=== PATIENT | female | born 1945 | race Caucasian/White ===

== ENCOUNTER 2020-10-10 08:18 | Outpatient (REF) | payer MEDICARE, OTHER, SELFPAY ==
--- NOTE | ~2020-10-10 | US_ITS ---
EXAMINATION: US RETROPERITONEAL LIMITED (RENAL ONLY) CLINICAL INFORMATION: Hematuria. COMPARISON: Ultrasound abdomen 12/24/2016. TECHNIQUE: Routine retroperitoneal ultrasound kidneys performed. FINDINGS: RIGHT KIDNEY: 11.1 x 4.5 x 4.7 cm (SAG x AP x TRV). The kidney is normal in size, contour, and echogenicity. Renal cortical thickness is normal. There are echogenic stone lower pole measuring 0.7 x 0.6 x 0.6 cm. No additional stones, cyst or solid mass seen. There is no hydronephrosis. LEFT KIDNEY: 12.1 x 5.2 x 4.3 cm. cm (SAG x AP x TRV). The kidney is normal in size, contour, and echogenicity. Renal cortical thickness is normal. Thin echogenic stone in the lower pole measuring 0.3 x 0.3 x 0.4 cm. No additional echogenic stones, cyst or hydronephrosis seen. US/US renal BI IMPRESSION: Bilateral nonobstructive echogenic renal calculi. No caliectasis or hydronephrosis.
== END 2020-10-10 08:19 | disposition home or self-care (01) ==
LOC: HO.HMGCX 08:18
PROVIDERS: PCP Internal Medicine; Visit Provider Internal Medicine
DX: N20.0 Calculus of kidney (principal); R31.9 Hematuria, unspecified
CPT/HCPCS: 76775

== ENCOUNTER 2021-09-25 12:12 | Outpatient (REF) | payer OTHER, SELFPAY ==
[2021-09-25 14:08] LABS: Hematocrit 43.8 % (37.0-47.0); Hemoglobin 14.8 g/dl (12.0-16.0); Mean Corpuscular HGB Conc 33.8 g/dl (31.0-35.0); Mean Corpuscular Hemoglobin 31.9 pg (27.0-33.0); Mean Corpuscular Volume 94.4 fL (80.0-98.0); Mean Platelet Volume 10.3 fL (9.4-12.3); Platelet Count 291 X10*3/uL (160-400); Red Blood Count 4.64 X10*6/uL (4.20-5.50); Red Cell Distribution Width 13.3 % (11.0-16.0); White Blood Count 7.5 X10*3/uL (4.8-10.8)
[2021-09-25 14:52] LABS: TSH reflex Free T4 1.02 uIU/mL (0.32-4.0)
[2021-09-25 14:53] LABS: Alanine Aminotransferase 34 U/L (0-31); Albumin Level 4.6 g/dL (3.5-5.0); Alkaline Phosphatase 98 U/L (39-117); Anion Gap 16 (12-20); Aspartate Amino Transferase 25 U/L (5-31); Bilirubin Total 0.6 mg/dL (0.0-1.0); Blood Urea Nitrogen 17 mg/dL (9-16); Calcium 10.6 mg/dL (8.4-10.2); Carbon Dioxide 26 mmol/L (22-29); Chloride 105 mmol/L (96-108); Estimated Glomerular Filt Rate > 60; Glucose Random 99 mg/dL (60-115); Potassium 4.8 mmol/L (3.3-5.1); Sodium 142 mmol/L (135-145)
== END 2021-09-25 12:13 | disposition home or self-care (01) ==
LOC: HO.HMGCLDS 12:12
PROVIDERS: PCP Internal Medicine; Visit Provider Internal Medicine
DX: E78.00 Pure hypercholesterolemia, unspecified (principal); I10 Essential (primary) hypertension
CPT/HCPCS: 36415; 80053; 84443; 85027

== ENCOUNTER 2021-10-06 08:53 | Outpatient (REF) | payer OTHER, SELFPAY ==
[2021-10-07 15:05] LABS: Calcium (PTHI) 9.7 mg/dL (8.6-10.4); PTHI 20 pg/mL (14-64)
[2021-10-08 16:06] LABS: Calcium, Ionized 5.2 mg/dL (4.8-5.6)
== END 2021-10-06 08:54 | disposition home or self-care (01) ==
LOC: HO.HMGCLDS 08:53
PROVIDERS: PCP Internal Medicine; Visit Provider Internal Medicine
DX: E83.52 Hypercalcemia (principal)
CPT/HCPCS: 36415; 82330; 83970

== ENCOUNTER → 2021-10-22 08:13 | Outpatient (REF) | payer OTHER, SELFPAY ==
--- NOTE | 2021-10-22 08:16 | CA_ITS ---
Transthoracic Echocardiogram Patient (Last, First, Middle): Jesenia Finney R Gender: Female Date of : 1945 Age: 75 Procedure Date: 10/22/2021 Procedure Type: Transthoracic Echocardiogram Location: OP Height: 154.94 cm Weight: 72.12 kg BSA: 1.71 m2 Heart Rate: bpm BP: 130 / 80 mmHg Outside Sales Executive: PATRICK Mills MD: Viji Bustos MD Groutman: Tito Toth MD Symptoms: R60.9 - Edema, unspecified Study Quality: Fair ECG Rhythm: Sinus Conclusions: - 1. Normal LV systolic function with grade 1 diastolic dysfunction 2. Normal cardiac valvular Doppler 3. Normal RV systolic pressure 4. No pericardial effusion Findings Left Ventricle Normal left ventricular size, thickness, and systolic function. The visually estimated ejection fraction is between 60-65%. Spectral Doppler is indicative of an impaired relaxation filling pattern. E/E prime ratio is <8, consistent with normal filling pressures. Evidence suggests grade I (mild) diastolic dysfunction. Right Ventricle Normal right ventricular cavity size and systolic function. Atria The left atrium is normal in size. There is no evidence of interatrial shunt. Aortic Valve Normal aortic valve structure and function. There is no aortic valve stenosis. There is no aortic valve regurgitation. Mitral Valve There is mild anterior and posterior mitral leaflet thickening. There is trace mitral valve regurgitation. There is no mitral valve stenosis. Pulmonic Valve The pulmonic valve was not well visualized. Tricuspid Valve Likely normal tricuspid valve structure and function. There is trace tricuspid valve regurgitation. The right ventricular systolic pressure is normal. The right ventricular systolic pressure is 33 mmHg. Normal right atrial pressure. There is no evidence of pulmonary hypertension. Great Vessels All visible segments of the aorta are normal in size. The pulmonary artery was not well visualized. Venous The inferior vena cava is normal in size and collapses greater than 50% with inspiration. Pericardium/Pleural There is no evidence of pericardial effusion. Prior Study Comparison No previous study in the last 5 years for comparison Measurements 2D Linear Measurements IVSd: 1.01 0.6-0.9/0.6-1.0 cm LVIDd: 4.41 3.9-5.3/4.2-5.9 cm LVIDd Index: 2.58 2.4-3.2/2.2-3.1 cm/m2 LVIDs: 3.28 2.0-3.6 cm LVPWd: 0.96 0.7-1.1 cm Ao Root: 3.00 2.1-3.5 cm LA Diam: 3.50 2.7-3.8/3.0-4.0 cm LAIDs Index: 2.05 1.5-2.3 cm/m2 LV Mass: 181.01 67-162/88-224 g LV Mass Index: 105.86 43-95/49-115 g/m2 LVOT Diam: 2.00 3.0+(-)1.3 cm 2D Systolic Function EF 4C: 61.70 >55% EF 2C: 62.40 >55% EF BiP: 62.80 >55% Mitral Valve MV Pk E: 0.46 MV PK A: 0.60 MV Decel Time: 235.00 E/A: 0.80 E'Lateral: 6.96 E'Medial: 5.66 E/E' Med: 8.10 E/E' Lat: 6.60 PHT: 69.00 MVA PHT: 3.19 Decel Cross: 1.95 Aortic Valve AoV Pk Isai: 1.31 AoV Mn Isai: 0.84 AoV VTI: 0.26 AoV Pk Grad: 7.00 Aov Mn Grad: 3.00 JORGE A Cont.VTI: 2.51 LVOT LVOT Pk Isai: 1.07 LVOT Mn Isai: 0.65 LVOT VTI: 0.21 LVOT Pk Grad: 5.00 LVOT Mn Grad: 2.00 LVOT Diam: 2.00 LVOT Area: 3.14 Diastolic Function MV Pk E: 0.46 MV Pk A: 0.60 E/A: 0.80 E'Medial: 5.66 E/E' Med: 8.10 E' Laterial: 6.96 E/E' Lat: 6.60 Right Ventricle TAPSE (mm): 18.00 TVS' Isai: 10.00 Tricuspid Valve TR Pk Isai: 2.73 TR Pk Grad: 30.00 RA Press: 3.00 RVSP: 33.00 Great Vessels Aorta Ao Root-2D: 3.00 2.0-3.7 cm Ao Asc: 3.30 2.1-3.4 cm Updated in Other Vendor System with Status of Final Tito Toth MD electronically signed on 10/22/2021 11:07:14 AM with status of Final
== END ==
LOC: HO.CARD 08:13
PROVIDERS: PCP Internal Medicine; Visit Provider Internal Medicine
DX: R60.9 Edema, unspecified (principal); E78.00 Pure hypercholesterolemia, unspecified
CPT/HCPCS: 93306

== ENCOUNTER 2021-12-02 12:45 | Outpatient (REF) | payer OTHER, SELFPAY ==
--- NOTE | ~2021-12-02 | CT_ITS ---
EXAMINATION: CT CHEST SCREENING CLINICAL INFORMATION: Current smoker. 60 pack year history. COMPARISON: Previous chest CT, most recent May 2020 TECHNIQUE: Multidetector volumetric CT imaging of the chest is performed without contrast using low dose technique. Additional 2D coronal and sagittal reformatted images and axial 3D maximum intensity projection (MIP) images are generated on the CT workstation. This CT examination was performed using dose optimization techniques as appropriate, variously including the following: *Automated exposure control *Adjustment of mA and/or kV according to patient size (this includes techniques or standardized protocols for targeted exams where dose is matched to indication/reason for exam; i.e. extremities or head) *Use of iterative reconstruction technique DLP: 59 mGy-cm FINDINGS: LUNGS: There is evidence of emphysema. The small pulmonary nodules are stable. Largest pulmonary nodule are a 3 mm calcified right lower lobe nodule axial image 358 series 4 and 3 mm noncalcified right upper lobe nodule axial image 214 series 4. There are scattered areas of bronchial wall thickening tissue opacification. There are areas of chronic scarring or subsegmental atelectasis that are stable. Largest areas in the anterior segment of the right upper lobe and in the left lower lobe adjacent to the descending thoracic aorta. MEDIASTINUM: There is coronary artery calcification. The thoracic aorta is tortuous. The mediastinum is otherwise normal. PLEURA: There is no pleural effusion. No pleural mass or thickening. AXILLA: No lymphadenopathy. UPPER ABDOMEN: There is diverticulosis of the colon. OSSEOUS STRUCTURES: There are degenerative changes of the spine. There is curvature of the lower thoracic spine to the right. CT/CT lung screening IMPRESSION: Emphysema. Stable small calcified and noncalcified pulmonary nodules. ASSESSMENT: Lung-RADS category 2: Benign RECOMMENDATION: Annual low-dose chest CT follow-up recommended
== END 2021-12-02 12:46 | disposition home or self-care (01) ==
LOC: HO.CT 12:45
PROVIDERS: PCP Internal Medicine; Visit Provider Physician Assistant Medical
DX: Z12.2 Encounter for screening for malignant neoplasm of respiratory organs (principal); F17.210 Nicotine dependence, cigarettes, uncomplicated
CPT/HCPCS: 71271

== ENCOUNTER 2022-06-30 06:57 | Outpatient (REF) | payer OTHER, SELFPAY ==
[2022-06-30 11:14] LABS: Appearance Urine Cloudy; Color Urine Yellow; Glucose Urine UA Negative (Negative); Leukocyte Esterase Urine Small (1+) (Negative); Nitrite Urine Negative (Negative); PH 7.5 (5.0-9.0); Specific Gravity - Urine 1.015 (1.005-1.025); UMIC TRIGGER UA YES; Urine Blood Moderate (2+) (Negative); Urine Ketones Negative (Negative); Urine Protein Negative (Neg-Trace)
[2022-06-30 11:25] LABS: Bacteria Urine 4+ (None Seen); Hyaline Casts Urine 0-2 /LPF (0-2); RBC Urine >20 /HPF (0-2); WBC Urine 0-5 /HPF (0-5)
[2022-06-30 11:37] LABS: Hematocrit 41.3 % (37.0-47.0); Hemoglobin 13.7 g/dl (12.0-16.0); Mean Corpuscular HGB Conc 33.2 g/dl (31.0-35.0); Mean Corpuscular Hemoglobin 31.9 pg (27.0-33.0); Mean Platelet Volume 10.3 fL (9.4-12.3); Platelet Count 293 X10*3/uL (160-400); Red Cell Distribution Width 13.7 % (11.0-16.0); White Blood Count 5.6 X10*3/uL (4.8-10.8)
[2022-06-30 11:48] LABS: Alanine Aminotransferase 24 U/L (0-31); Albumin Level 4.2 g/dL (3.5-5.0); Alkaline Phosphatase 92 U/L (39-117); Anion Gap 16 (12-20); Aspartate Amino Transferase 21 U/L (5-31); Bilirubin Total 0.5 mg/dL (0.0-1.0); Blood Urea Nitrogen 13 mg/dL (9-16); Calcium 9.3 mg/dL (8.4-10.2); Carbon Dioxide 28 mmol/L (22-29); Chloride 103 mmol/L (96-108); Cholesterol 166 mg/dL; Estimated Glomerular Filt Rate > 60; Glucose Fasting 108 mg/dL (60-99); HDL Cholesterol 60 mg/dL; LDL Cholesterol Calculated 74 mg/dl; Potassium 5.2 mmol/L (3.3-5.1); Sodium 142 mmol/L (135-145); Total Protein 7.2 g/dL (6.5-8.0); Triglycerides 163 mg/dL
[2022-06-30 11:58] LABS: Vitamin D 25-OH Total 54.3 ng/mL (>30)
== END 2022-06-30 06:58 | disposition home or self-care (01) ==
LOC: HO.HMGCLDS 06:57
PROVIDERS: PCP Internal Medicine; Visit Provider Internal Medicine
DX: E78.00 Pure hypercholesterolemia, unspecified (principal); I10 Essential (primary) hypertension
CPT/HCPCS: 36415; 80053; 80061; 81001; 82306; 85027

== ENCOUNTER 2022-07-08 07:21 | Outpatient (REF) | payer OTHER, SELFPAY ==
[2022-07-08 12:50] LABS: Anion Gap 19 (12-20); Blood Urea Nitrogen 16 mg/dL (9-16); Calcium 9.9 mg/dL (8.4-10.2); Carbon Dioxide 24 mmol/L (22-29); Chloride 103 mmol/L (96-108); Estimated Glomerular Filt Rate > 60; Glucose Random 101 mg/dL (60-115); Potassium 4.5 mmol/L (3.3-5.1); Sodium 141 mmol/L (135-145)
== END 2022-07-08 07:22 | disposition home or self-care (01) ==
LOC: HO.HMGCLDS 07:21
PROVIDERS: PCP Internal Medicine; Visit Provider Internal Medicine
DX: E87.5 Hyperkalemia (principal)
CPT/HCPCS: 36415; 80048

== ENCOUNTER 2022-08-18 07:10 | Outpatient (REF) | payer OTHER, SELFPAY ==
[2022-08-18 12:57] LABS: Anion Gap 17 (12-20); Blood Urea Nitrogen 13 mg/dL (9-16); Carbon Dioxide 24 mmol/L (22-29); Chloride 102 mmol/L (96-108); Estimated Glomerular Filt Rate > 60; Glucose Random 107 mg/dL (60-115); Potassium 3.8 mmol/L (3.3-5.1); Sodium 139 mmol/L (135-145); T4 Thyroxine 8.1 ug/dL (4.5-12.0); Thyroid Stimulating Hormone 1.13 uIU/mL (0.32-4.0)
[2022-08-18 13:08] LABS: Folate 18.1 ng/mL (> or = 4.0); Vitamin B12 541 pg/mL (200-900)
== END 2022-08-18 07:11 | disposition home or self-care (01) ==
LOC: HO.HMGCLDS 07:10
PROVIDERS: PCP Internal Medicine; Visit Provider Psychiatry & Neurology Neurology
DX: G31.84 Mild cognitive impairment of uncertain or unknown etiology (principal)
CPT/HCPCS: 36415; 80051; 82565; 82607; 82746; 82947; 84436; 84443; 84520

== ENCOUNTER 2022-12-30 14:07 | Outpatient (REF) | payer MEDICARE, SELFPAY ==
--- NOTE | ~2022-12-30 | CT_ITS ---
EXAMINATION: CT CHEST SCREENING CLINICAL INFORMATION: Nicotine dependence. Current smoker. 60 pack year history of smoking. COMPARISON: 12/02/2021 and 05/16/2020 TECHNIQUE: Multidetector volumetric CT imaging of the chest is performed without contrast using low dose technique. Additional 2D coronal and sagittal reformatted images and axial 3D maximum intensity projection (MIP) images are generated on the CT workstation. This CT examination was performed using dose optimization techniques as appropriate, variously including the following: *Automated exposure control *Adjustment of mA and/or kV according to patient size (this includes techniques or standardized protocols for targeted exams where dose is matched to indication/reason for exam; i.e. extremities or head) *Use of iterative reconstruction technique DLP: 43 mGy-cm FINDINGS: LUNGS: Central airways are patent. There is some mild proximal bronchial wall thickening seen. No bronchiectasis noted. No confluent parenchymal disease is seen. There is some stable scarring seen in both lower lobes as well as medial aspects of the right upper lobe, right middle lobe, and lingula. Mild emphysematous changes appreciated. There are a few scattered sub-4 mm densities present. Within the right upper lobe just superior to the minor fissure there is a 4 mm noncalcified nodule on image [address] series #5. This is essentially stable. MEDIASTINUM: Visualized thyroid gland unremarkable. Heart normal size. No pericardial effusion. No thoracic aortic aneurysm. No mediastinal or hilar lymphadenopathy identified. CORONARY ARTERY CALCIFICATION: Coronary artery calcification is present. PLEURA: There is no pleural effusion. No pleural mass or thickening. AXILLA: No lymphadenopathy. UPPER ABDOMEN: No significant abnormality appreciated. OSSEOUS STRUCTURES: No destructive lesions identified. Multilevel degenerative disc disease is seen within the thoracic spine. CT/CT lung screening IMPRESSION: Stable 4 mm right upper lobe noncalcified nodule. Mild changes of centrilobular emphysema. ASSESSMENT: Lung-RADS category 2: Benign RECOMMENDATION: Routine annual low-dose CT screening in 12 months.
== END 2022-12-30 14:08 | disposition home or self-care (01) ==
LOC: HO.CT 14:07
PROVIDERS: Visit Provider Physician Assistant Medical
DX: Z12.2 Encounter for screening for malignant neoplasm of respiratory organs (principal); F17.210 Nicotine dependence, cigarettes, uncomplicated
CPT/HCPCS: 71271

== ENCOUNTER 2023-02-23 09:43 | Outpatient (REF) | payer MEDICARE, SELFPAY ==
[2023-02-23 11:23] LABS: MANUAL DIFF FLAG NO
[2023-02-23 11:34] LABS: Basophils Percent Auto 0.4 % (0-2); Eosinophils Absolute Auto 0.1 X10*3/uL (0.0-0.4); Eosinophils Percent Auto 1.5 % (0-4); Hematocrit 38.5 % (37.0-47.0); Hemoglobin 12.9 g/dl (12.0-16.0); Imm Gran Abs Auto 0.02 X10*3/uL (0.00-0.03); Imm Gran Pct Auto 0.3 % (0.0-0.4); Lymphocytes Absolute Auto 1.2 X10*3/uL (1.2-4.9); Lymphocytes Percent Auto 17.3 % (20-40); Mean Corpuscular HGB Conc 33.5 g/dl (31.0-35.0); Mean Corpuscular Hemoglobin 32.2 pg (27.0-33.0); Mean Platelet Volume 10.8 fL (9.4-12.3); Monocytes Absolute Auto 0.5 X10*3/uL (0.1-1.2); Monocytes Percent Auto 7.3 % (2-11); Neutrophils Percent Auto 73.2 % (45-73); Platelet Count 252 X10*3/uL (160-400); Red Blood Count 4.01 X10*6/uL (4.20-5.50); Red Cell Distribution Width 14.6 % (11.0-16.0); White Blood Count 6.9 X10*3/uL (4.8-10.8)
[2023-02-23 12:20] LABS: Alanine Aminotransferase 34 U/L (0-31); Albumin Level 4.1 g/dL (3.5-5.0); Alkaline Phosphatase 93 U/L (39-117); Anion Gap 16 (12-20); Aspartate Amino Transferase 29 U/L (5-31); Bilirubin Total 0.7 mg/dL (0.0-1.0); Blood Urea Nitrogen 12 mg/dL (9-16); Calcium 9.1 mg/dL (8.4-10.2); Carbon Dioxide 23 mmol/L (22-29); Chloride 107 mmol/L (96-108); Estimated Glomerular Filt Rate > 60; Glucose Random 95 mg/dL (60-115); Potassium 3.7 mmol/L (3.3-5.1); Sodium 142 mmol/L (135-145); Total Protein 7.3 g/dL (6.5-8.0)
== END 2023-02-23 09:44 | disposition home or self-care (01) ==
LOC: HO.HMGCLDS 09:43
PROVIDERS: PCP Internal Medicine; Visit Provider Internal Medicine
DX: I10 Essential (primary) hypertension (principal); E87.5 Hyperkalemia
CPT/HCPCS: 36415; 80053; 85025

== ENCOUNTER 2023-04-28 11:49 | Outpatient (AMB) | payer MEDICARE, SELFPAY ==
--- NOTE | 2023-04-28 11:52 | MHC.OFFWIV ---
Intake Vital Signs 04/28/23 11:53 Height 5 ft 1 in Weight 146 lb 6 oz BMI 27.7 BP 136/78 Blood Pressure Location Rt brachial Position Sitting Pulse 85 Pulse Source Pulse Oximeter Temp 97.3 F Temp Source Temporal Artery Scan Pulse Oximetry (%) 95 Oxygen Delivery Method Room Air Intake Visit Reasons: EP, Rash in hands and legs Intake Note: Pt is here c/o rash on hands and legs for the last two weeks. Pt states it is very itchy. Patient Tobacco Use Status: Current everyday Tobacco user Allergies celecoxib [Celebrex] Allergy (Unknown, Verified 04/28/23 12:58) facial swelling amlodipine Adverse Reaction (Intermediate, Verified 04/28/23 12:58) edema Medication List - Last Reconciled 04/28/23 by Yusuf Zhao MD aspirin 81 mg PO DAILY cholecalciferol (vitamin D3) 25 mcg PO DAILY metoprolol succinate ER 50 mg PO DAILY prednisone 60 mg (3 x 20 mg) PO DAILY simvastatin 40 mg PO DAILY triamterene-hydrochlorothiazid 37.5-25 mg 1 tab PO DAILY Do you need a note to return to daycare/school/sports/work: No HPI EP, Rash in hands and legs HPI Details 77-year-old female presents to the office for a sick visit. Patient has developed a rash in both her forearms and lower extremity. Few blisters on the left forearm. [facility] Medical History (Updated 04/28/23 @ 13:01 by Yusuf Zhao MD) Edema GERD (gastroesophageal reflux disease) Hematuria HTN (hypertension) Hypercalcemia Hypercholesteremia Nephrolithiasis Osteoporosis (~2004) Personal history of nicotine dependence Skin lesion Surgical History History of cataract surgery History of partial hysterectomy Family History Father No problems noted. Mother No problems noted. Maternal Grandfather No problems noted. Maternal Grandmother No problems noted. Paternal Grandfather No problems noted. Paternal Grandmother No problems noted. Social History Housing: House Alcohol intake: never Patient Tobacco Use Status: Current everyday Tobacco user Cigarettes Per Day: 20 e-Cigarette/Vaping Use: Never Used Current occupational status: retired Cognitive needs: No Hearing needs: No Vision needs: Yes Physical Exam Vital Signs: Last Vital Signs Temp 97.3 F 04/28/23 11:53 Pulse 85 04/28/23 11:53 BP 136/78 04/28/23 11:53 Pulse Ox 95 04/28/23 11:53 Oxygen Delivery Method Room Air 04/28/23 11:53 BMI result Body Mass Index 27.7 Skin Other: Erythematous vesicular rash in the left forearm, maculopapular rash on the right forearm and right leg. Linear vesicles in the lower leg. Assessment & Plan Assessment & Plan (1) Rash: Code(s): R21 - Rash and other nonspecific skin eruption Plan: Most likely due to contact dermatitis. Prednisone prescribed. If symptoms not better to follow-up here. Medications: New prednisone 60 mg (3 x 20 mg) PO DAILY 9 tabs 0RF Coding Level of Care Code Est Pt Level 3 (63460) Diagnoses Rash R21
[2023-04-28 11:53] VITALS: BP 136/78; PULSE 85; TEMP 36.3; O2SAT 95; BMI 27.7
== END 2023-04-28 13:12 | disposition home or self-care (01) ==
PROVIDERS: PCP Internal Medicine; Visit Provider Internal Medicine
DX: R21 Rash and other nonspecific skin eruption (principal)
CPT/HCPCS: 99213

== ENCOUNTER 2023-08-17 09:05 | Outpatient (AMB) | payer MEDICARE, SELFPAY ==
--- NOTE | 2023-08-17 09:09 | MHC.OFFWIV ---
Intake Vital Signs 08/17/23 09:10 BMI Reason not done Patient refused/unable BP 130/82 Blood Pressure Location Lt brachial Position Sitting Pulse 87 Pulse Source Pulse Oximeter Temp 98.2 F Temp Source Oral Pulse Oximetry (%) 95 Oxygen Delivery Method Room Air Intake Visit Reasons: EP, right lower leg pain/swelling Intake Note: Pt is here today c/o Rt lower leg swelling and pain x1wk Patient Tobacco Use Status: Current everyday Tobacco user Allergies celecoxib [Celebrex] Allergy (Unknown, Verified 08/17/23 09:10) facial swelling amlodipine Adverse Reaction (Intermediate, Verified 08/17/23 09:10) edema HPI HPI Comments History of Present Illness Details 09 7-year-old female presents with atraumatic right lower extremity pain for the past week worsening, patient reports pain is primarily around her knee in her calf, she also reports that her right lower extremity in general has appeared more swollen than usual. No history of DVT or PE. No chest pain or shortness of breath. Not on blood thinners. Able to ambulate with some pain. Physical exam with 2+ pitting edema to right lower extremity, left lower extremity 1+ pitting edema. Bilaterally patient does have palpable 2+ anterior tib posterior tib and dorsalis pedis pulses. Normal sensation distally. Skin is warm. No discoloration History and physical exam concerning for DVT. Unlikely arterial occlusion neurovascular compromise or threat to [place]. Unlikely fracture dislocation. History and physical exam not consistent with sprain or strain. Plan at this time DVT study an x-ray of the right knee. Educated patient on diagnosis and treatment plan, answered all question, patient verbalizes understanding. At this time patient will be discharged home, advised to return with new or worsening symptoms. Educated on worrisome signs and symptoms and when to return. At this time I feel comfortable discharge home. [facility] Medical History Personal history of nicotine dependence Hypercalcemia Skin lesion Edema Nephrolithiasis Hematuria Osteoporosis (~2004) HTN (hypertension) GERD (gastroesophageal reflux disease) Hypercholesteremia Surgical History History of cataract surgery History of partial hysterectomy Family History Father No problems noted. Mother No problems noted. Maternal Grandfather No problems noted. Maternal Grandmother No problems noted. Paternal Grandfather No problems noted. Paternal Grandmother No problems noted. Social History Housing: House Alcohol intake: never Patient Tobacco Use Status: Current everyday Tobacco user Cigarettes Per Day: 20 e-Cigarette/Vaping Use: Never Used Current occupational status: retired Cognitive needs: No Hearing needs: No Vision needs: Yes Review of Systems Const Details: Constitutional : No Weight loss, No Fever, No Chills, No Fatigue, No Malaise ENT/Mouth : No sore throat, No Rhinorrhea Eyes: No Eye Pain, No Swelling, No Redness Cardiovascular : No Chest Pain, No SOB, No Dyspnea on Exertion, No Orthopnea, + Edema, No Palpitations Respiratory : No Cough, No Sputum, No Wheezing Gastrointestinal : No Nausea, No Vomiting, No Diarrhea, No Constipation, No abdominal Pain, No Hematochezia, No Melena Genitourinary : No Dysuria, No Urinary Frequency, No Hematuria, Musculoskeletal : No joint pain, No Myalgias, No Joint Swelling Skin : No Skin Lesions, No rash Neuro : No Weakness, No Numbness, No Dizziness, No Headache Psych : No Anxiety/Panic, No Depression All other systems reviewed and are negative All systems reviewed & are unremarkable except as noted in HPI and below Physical Exam Vital Signs: Last Vital Signs Temp 98.2 F 08/17/23 09:10 Pulse 87 08/17/23 09:10 BP 130/82 08/17/23 09:10 Pulse Ox 95 08/17/23 09:10 Oxygen Delivery Method Room Air 08/17/23 09:10 Vital signs stable Appearance: Alert.? Oriented X3.? No acute distress.? Head: Normocephalic, atraumatic, no step-offs or deformities Eyes: Pupils equal, round and reactive to light.? CVS: Normal heart rate and rhythm.? Pulses normal.? Respiratory: No respiratory distress.? Breath sounds normal.? Skin: Skin warm and dry.? Normal skin color.? Normal skin turgor.? Extremities: No lower extremity edema.? No calf ttp. 5/5 strength to bilateral upper and lower extremities 2+ pitting edema to right lower extremity, left lower extremity 1+ pitting edema. Bilaterally patient does have palpable 2+ anterior tib posterior tib and dorsalis pedis pulses. Normal sensation distally. Skin is warm. No discoloration Back: No midline tenderness, no C-spine tenderness, full range of motion, no CVA tenderness bilaterally Neuro: Oriented X 3.? No motor deficit.? No sensory deficit. CN 2-12 intac Assessment & Plan Assessment & Plan (1) Right leg swelling: Code(s): M79.89 - Other specified soft tissue disorders Plan Take your medications as prescribed. If you were prescribed antibiotics today, it is important that you take your medication to their entirety, do not skip any doses, do not finish them early. Follow-up with your primary care provider this week. Return to the emergency department with new or worsening symptoms. Such as fevers, chills, chest pain, shortness of breath, nausea, vomiting, dizziness, headache, vision changes, lethargy In case of emergency call 911 Orders: Orders US venous duplex LE RT Today M79. - Other specified soft tissue disorders Complete Blood Count Auto Diff Today M. - Other specified soft tissue disorders Basic Metabolic Panel Today M79. - Other specified soft tissue disorders XR knee RT 2V Today M79. - Other specified soft tissue disorders Prothrombin Time INR Today M. - Other specified soft tissue disorders Coding Level of Care Code Est Pt Level 3 (30746) Diagnoses Right leg swelling M79
[2023-08-17 09:10] VITALS: BP 130/82; PULSE 87; TEMP 36.8; O2SAT 95
== END 2023-08-17 09:41 | disposition home or self-care (01) ==
PROVIDERS: PCP Internal Medicine; Visit Provider Physician Assistant
DX: M79.89 Other specified soft tissue disorders (principal)
CPT/HCPCS: 99213

== ENCOUNTER 2023-08-17 09:28 | Outpatient (REF) | payer MEDICARE, SELFPAY ==
--- NOTE | ~2023-08-17 | XR_ITS ---
EXAMINATION: XR KNEE, RIGHT CLINICAL INFORMATION: Other specified soft tissue disorders COMPARISON: None available. TECHNIQUE: Standing AP and lateral of the right knee. FINDINGS: No fracture. Small joint effusion. Alignment is anatomic. Small marginal osteophytes involve the lateral and patellofemoral joint compartment. There is soft tissue swelling inferior to the patella. Extensive arterial vascular calcifications are seen. XR/XR knee RT 2V IMPRESSION: 1. Mild osteoarthritis. 2. Soft tissue swelling inferior to the patella.
--- NOTE | ~2023-08-17 | US_ITS ---
EXAMINATION: US VENOUS ULTRASOUND WITH DOPPLER LOWER EXTREMITY, RIGHT CLINICAL INFORMATION: Right leg swelling, pain, rule out DVT COMPARISON: None available. TECHNIQUE: Ultrasound of the deep veins is performed from the hip to the calf with compression sonography and color and pulse Doppler assessment. Spectral analysis with color-flow imaging is performed. FINDINGS: There is normal venous compression and respiratory variation and augmented flow. The visualized common femoral vein, superficial femoral vein, profunda femoral vein, popliteal vein, and the trifurcation region shows no evidence of deep venous thrombosis. There is no significant popliteal fossa cyst. If the patient's symptoms persist, followup ultrasound in 5 days 7 days might be of value to exclude proximal propagation from a non-visualized calf vein. US/US venous duplex LE RT IMPRESSION: No DVT demonstrated in the right lower extremity.
[2023-08-17 11:25] LABS: MANUAL DIFF FLAG NO
[2023-08-17 11:43] LABS: Basophils Percent Auto 0.3 % (0-2); Eosinophils Absolute Auto 0.1 X10*3/uL (0.0-0.4); Eosinophils Percent Auto 0.6 % (0-4); Hematocrit 39.8 % (37.0-47.0); Hemoglobin 13.5 g/dl (12.0-16.0); Imm Gran Abs Auto 0.03 X10*3/uL (0.00-0.03); Imm Gran Pct Auto 0.3 % (0.0-0.4); Lymphocytes Absolute Auto 1.1 X10*3/uL (1.2-4.9); Lymphocytes Percent Auto 12.9 % (20-40); Mean Corpuscular HGB Conc 33.9 g/dl (31.0-35.0); Mean Corpuscular Hemoglobin 32.9 pg (27.0-33.0); Mean Corpuscular Volume 97.1 fL (80.0-98.0); Mean Platelet Volume 10.8 fL (9.4-12.3); Monocytes Absolute Auto 0.8 X10*3/uL (0.1-1.2); Monocytes Percent Auto 8.5 % (2-11); Neutrophils Absolute Auto 6.8 x10*3/uL (2.0-8.3); Neutrophils Percent Auto 77.4 % (45-73); Platelet Count 262 X10*3/uL (160-400); Red Cell Distribution Width 12.6 % (11.0-16.0); White Blood Count 8.8 X10*3/uL (4.8-10.8)
[2023-08-17 11:49] LABS: INTERNATIONAL NORM RATIO 0.9 (0.9-1.1); Prothrombin Time 11.1 SEC (11.1-13.3)
[2023-08-17 12:06] LABS: Anion Gap 16 (12-20); Blood Urea Nitrogen 15 mg/dL (9-16); Calcium 9.5 mg/dL (8.4-10.2); Carbon Dioxide 23 mmol/L (22-29); Chloride 105 mmol/L (96-108); Estimated Glomerular Filt Rate > 60; Glucose Random 104 mg/dL (60-115); Potassium 3.9 mmol/L (3.3-5.1); Sodium 140 mmol/L (135-145)
== END 2023-08-17 09:29 | disposition home or self-care (01) ==
LOC: HO.HMGCX 09:28
PROVIDERS: PCP Internal Medicine; Visit Provider Physician Assistant
DX: M79.89 Other specified soft tissue disorders (principal)
CPT/HCPCS: 36415; 73560; 80048; 85025; 85610; 93971

== ENCOUNTER 2023-09-10 11:54 | Outpatient (AMB) | payer MEDICARE, SELFPAY ==
[2023-09-10 12:03] VITALS: BP 120/80; PULSE 74; O2SAT 93; BMI 26.7
--- NOTE | 2023-09-10 12:03 | MHC.PC.OV ---
Vital Signs 09/10/23 12:03 Height 5 ft 1 in Weight 141 lb 8 oz BMI 26.7 BP 120/80 Blood Pressure Location Lt brachial Pulse 74 Pulse Source Pulse Oximeter Pulse Oximetry (%) 93 Oxygen Delivery Method Room Air Intake Visit Reasons: Annual PE Allergies celecoxib [Celebrex] Allergy (Unknown, Verified 09/10/23 12:04) facial swelling amlodipine Adverse Reaction (Intermediate, Verified 09/10/23 12:04) edema Medication List - Last Reconciled 09/10/23 by Viji Bustos MD aspirin 81 mg PO DAILY cholecalciferol (vitamin D3) 25 mcg PO DAILY metoprolol succinate ER 50 mg PO DAILY simvastatin 40 mg PO DAILY triamterene-hydrochlorothiazid 37.5-25 mg 1 tab PO DAILY Tobacco use date assessed: 09/10/23 Fall risk assessment: 1 Fall in past year Last assessed Fall Risk: 09/10/23 Dental Screening Dental Screen Date: 09/10/23 Did you have a dental visit in the last 12 months?: No Did you have a dental problem in the last 6 months where you did not have access to dental care?: No Was dental information given to patient?: No HPI Annual PE HPI Details Patient presents for a physical. Hypertension and hyperlipidemia are controlled on current medications. Patient continues to smoke 1 pack a day and is established with lung cancer screening program. She is not interested to quit smoking. [facility] Medical History (Updated 09/10/23 @ 14:49 by Viji Bustos MD) Personal history of nicotine dependence Hypercalcemia Skin lesion Edema Nephrolithiasis Hematuria Osteoporosis (~2004) HTN (hypertension) GERD (gastroesophageal reflux disease) Hypercholesteremia Surgical History History of cataract surgery History of partial hysterectomy Family History Father No problems noted. Mother No problems noted. Maternal Grandfather No problems noted. Maternal Grandmother No problems noted. Paternal Grandfather No problems noted. Paternal Grandmother No problems noted. Social History Housing: House Alcohol intake: never Patient Tobacco Use Status: Current everyday Tobacco user Cigarettes Per Day: 20 e-Cigarette/Vaping Use: Never Used Current occupational status: retired Cognitive needs: No Hearing needs: No Vision needs: Yes Questionnaire PHQ-9 Over the last 2 weeks, how often have you been bothered by any of the following problems? 1. Little interest or pleasure in doing things: not at all 2. Feeling down, depressed, or hopeless: not at all 3. Trouble falling or staying asleep, or sleeping too much: not at all 4. Feeling tired or having little energy: several days 5. Poor appetite or overeating: not at all 6. Feeling bad about yourself - or that you are a failure or have let yourself or your family down: not at all 7. Trouble concentrating on things, such as reading the newspaper or watching television: not at all 8. Moving or speaking so slowly that other people could have noticed. Or the opposite - being so fidgety or restless that you have been moving around a lot more than usual: not at all 9. Thoughts that you would be better off or of hurting yourself in some way: not at all Total score: 1 Depression Screening Interpretation: Negative Depression Screening Done: Yes Source: Developed by Drs. Jovanny Barbosa, Marlee Peraza, Erwin Rivas and colleagues, with an educational blanca from [employer]. Thrive Questionnaire Date Thrive assessed: 09/10/23 I am a: Patient What is your living situation today?: I have a steady place to live Within the past 12 months, did the food you bought not last and you didn't have the money to get more?: Never true Within the past 12 months, did you worry whether your food would run out before you got money to buy more?: Never true Do you have trouble paying for medicines?: No Do you have trouble getting transportation to medical appointments?: No Do you have trouble paying your heating and electricity bill?: No Do you have trouble taking care of your child, family member or friend?: No Do you have trouble with day-to-day activities such as bathing, preparing meals, shopping, managing finances, etc.?: No Are you currently unemployed and looking for a job?: No Are you interested in more education?: No Please select the resources that you would like help with: None Currently or been in a relationship where the following occur: no concerns reported CLEO-7 AMB Questionnaire CLEO-7 Date CLEO - 7 assessed: 09/10/23 Feeling nervous, anxious, or on edge: 0 = Not at all Not being able to stop or control worryin = Not at all Worrying too much about different things: 0 = Not at all Trouble relaxin = Not at all Being so restless that it is hard to sit still: 0 = Not at all Becoming easily annoyed or irritable: 1 = Several days Feeling afraid as if something awful might happen: 0 = Not at all Total CLEO-7 score (0-4 normal; 5-9 mild; 10-14 moderate; 15-21 severe): 1 Source: Developed by Drs. Jovanny Barbosa, Marlee Peraza, Erwin Rivas and colleagues, with an educational blanca from [employer]. Review of Systems Const All systems reviewed & are unremarkable except as noted in HPI and below Reports no additional complaints Eyes Reports no additional complaints ENT Reports no additional complaints Card Reports no additional complaints Resp Reports no additional complaints GI Reports no additional complaints Reports no additional complaints Musc Reports no additional complaints Physical exam (Primary Care) Vital Signs: Last Vital Signs Pulse 74 09/10/23 12:03 BP 142/92 H 09/10/23 12:03 Pulse Ox 93 09/10/23 12:03 Oxygen Delivery Method Room Air 09/10/23 12:03 BMI result Body Mass Index 26.7 Tobacco/Smoking Status: Tobacco use Status Tobacco use date assessed 09/10/23 09/10/23 12:06 Patient Tobacco Use Status Current everyday Tobacco 09/10/23 12:06 e-Cigarette/Vaping Use Never Used 09/10/23 12:06 PHQ-9: PHQ-9 Score PHQ-9: Total score 1 09/10/23 12:48 Depression Screening Interpretation: Negative Thrive Assessment: Date of Thrive Assessment Date Thrive assessed 09/10/23 09/10/23 12:48 Currently or been in a relationship where the following occur: no concerns reported Const General: no acute distress HENMT Head: Yes normal to inspection Ears: hearing grossly normal bilaterally Face and sinus: Yes normal facial exam Mouth: Normal oral and palatal mucosa present Throat: Yes posterior oropharynx normal Eyes General: appearance normal, both eyes and all related structures Neck Neck: Yes no lymphadenopathy and Yes supple Resp Effort & Inspection: normal respiratory effort Auscultation: clear to auscultation bilaterally Cardio Rhythm: regular rhythm Heart sounds: S1 normal heart sound present and S2 normal heart sound present GI Inspection: Yes normal to inspection Palpation (GI): Soft to palpation Percussion: Yes normal to percussion Auscultation: normal bowel sounds Assessment and Plan Assessment & Plan (1) HTN (hypertension): Comment: BP<130/80 Code(s): I10 - Essential (primary) hypertension Plan: Continue current medications (2) Hypercholesteremia: Code(s): E78.00 - Pure hypercholesterolemia, unspecified Plan: Continue statin (3) Personal history of nicotine dependence: Comment: (current smoker, onset 17, 1ppd x 59yrs, 50pyh) Code(s): Z87.891 - Personal history of nicotine dependence Plan: Tobacco quitting discussed with the patient she is not interested. She is established with lung cancer screen program (4) Postmenopausal: Code(s): Z78.0 - Asymptomatic menopausal state Plan: Check dexa, (5) Annual physical exam: Code(s): Z00.00 - Encounter for general adult medical examination without abnormal findings Plan: Well-balanced diet regular physical activity tobacco quitting discussed with the patient. DEXA and mammogram will be scheduled. Orders: Orders MM screening mammo BI Today Z12.31 - Encounter for screening mammogram for malignant neoplasm of breast XR DEXA axial skeleton Today Z78.0 - Asymptomatic menopausal state, Z87.891 - Personal history of nicotine dependence Coding Level of Care Code Est Pt Prev Care >65y(31847) Diagnoses HTN (hypertension) I10 Hypercholesteremia E78.00 Personal history of nicotine dependence Z87.891 Postmenopausal Z78.0 Annual physical exam Z00.00
== END 2023-09-10 12:44 | disposition home or self-care (01) ==
PROVIDERS: PCP Internal Medicine; Visit Provider Internal Medicine
DX: I10 Essential (primary) hypertension (principal); E78.00 Pure hypercholesterolemia, unspecified; Z87.891 Personal history of nicotine dependence; Z78.0 Asymptomatic menopausal state; Z00.00 Encounter for general adult medical examination without abnormal findings
CPT/HCPCS: 99397

== ENCOUNTER 2023-10-13 13:54 | Outpatient (REF) | payer MEDICARE, SELFPAY ==
--- NOTE | ~2023-10-13 | MM_ITS ---
EXAMINATION: BONE DENSITOMETRY CLINICAL INDICATION: Essential (primary) hypertension. COMPARISON: Previous BD dated 09/02/2017 and baseline BD dated 07/16/2005. TECHNIQUE: Using a [employer] DXA System (software version: 13.1) manufactured by [employer], dual-energy x-ray absorptiometry was performed of the lumbar spine and left hip. The images are of good technical quality. Summary results are attached. FINDINGS: LEFT FEMUR, NECK: Current: BMD 0.619 g/cm2, Z-score -1.1, T-score -3.0, osteoporosis. Prior: BMD 0.600 g/cm2. Baseline: BMD 0.713 g/cm2. LEFT FEMUR, TOTAL: Current: BMD 0.709 g/cm2, Z-score -0.6, T-score -2.4, osteopenia, 4.3% increase from previous, 3.5% decrease from baseline (<5% change is not significant). Prior: BMD 0.680 g/cm2. Baseline: BMD 0.735 g/cm2. AP SPINE L1-L3 (excluding L4): The data of L1-L4 has been changed to exclude the L4 vertebral body, because degenerative change at this level may cause overestimation of lumbar spine density. Current: BMD 0.914 g/cm2, Z-score -0.4, T-score -2.1, osteopenia, 14.1% increase from previous, 2.8% increase from baseline (<5% change is not significant). Prior: BMD 0.801 g/cm2. Baseline: BMD 0.889 g/cm2. IDENTIFIED RISK FACTORS: Dementia, early menopause, hysterectomy, secondary osteoporosis, tobacco user (current smoker). HISTORY OF FRACTURE: None listed. MEDICATIONS: Multivitamins. MM/XR DEXA axial skeleton IMPRESSION: 1. DIAGNOSIS: Osteoporosis based on the lowest T-score value of -3.0 in the femoral neck applying World Health Organization criteria. 2. 10-YEAR FRACTURE RISK PREDICTION, FRAX: According to the guidelines, FRAX calculation should only be performed on patients in the osteopenia bone density category. Therefore, FRAX was not performed on this patient. 3. Treatment Recommendations: NOF guidelines recommend consideration for treatment in postmenopausal women and men age 50 and older presenting with the following: -A hip or vertebral (clinical or morphometric) fracture. -T-score less than or equal to -2.5 at the femoral neck or spine after appropriate evaluation to exclude secondary causes. -Low bone mass at the hip or spine and a 10-year fracture probability by FRAX of greater than or equal to 3% for hip fracture or greater than or equal to 20% for major osteoporotic fracture based on the [place] adapted WHO algorithm. 4. Other Recommendations: All treatment decisions require clinical judgment and consideration of individual patient factors, including patient preferences, comorbidities, previous drug use, risk factors not captured in the FRAX model (e.g. frailty, falls, vitamin D deficiency, increased bone turnover, interval significant decline in bone density) and possible under or overestimation of fracture risk by FRAX. Additional medical evaluation for secondary cause of low bone mineral density may be appropriate. FUTURE SCAN RECOMMENDATION: People with diagnosed cases of osteoporosis or at high risk for fracture should have regular bone mineral density tests. For patients eligible for Medicare, routine testing is allowed once every 2 years. The testing frequency can be increased to one year for patients who have rapidly progressing disease, those who are receiving or discontinuing medical therapy to restore bone mass, or have additional risk factors.
--- NOTE | ~2023-10-13 | MM_ITS ---
EXAMINATION: MM SCREENING DIGITAL BREAST TOMOSYNTHESIS, BILATERAL CLINICAL INFORMATION: Screening. Asymptomatic. COMPARISON: Mammography: This study is compared with prior exams dating back to 2018. TECHNIQUE: Digital breast tomosynthesis is performed in both the craniocaudal and mediolateral oblique views along with computer-aided detection (CAD). Synthesized 2D images are generated from the tomosynthesis. FINDINGS: There are scattered areas of fibroglandular density (ACR BI-RADS breast composition Category b). In the 3:00 position of the left breast, just lateral to the posterior nipple line and at a middle depth, there is a focal asymmetry which warrants additional mammographic and targeted sonographic evaluation. In the right breast, there are no significant masses, abnormal calcifications, or other abnormalities. MM/MM tomosynthesis screening BI IMPRESSION: Focal asymmetry of the left breast warrants additional mammographic and targeted sonographic evaluation. No mammographic signs of malignancy right breast. ASSESSMENT: BI-RADS BI-RADS 0 - Incomplete: Needs additional Imaging. RECOMMENDATION: 1. Additional views of the left breast. 2. Targeted ultrasound if warranted after review of the additional views. 3. Radiology department staff will contact the patient for additional imaging. Additional Imaging required This examination should not preclude the clinical evaluation of a suspicious palpable abnormality. This patient's information was entered into a reminder system with a target due date for their next mammogram.
== END 2023-10-13 13:55 | disposition home or self-care (01) ==
LOC: HO.MAMMO 13:54
PROVIDERS: PCP Internal Medicine; Visit Provider Internal Medicine
DX: Z12.31 Encounter for screening mammogram for malignant neoplasm of breast (principal); Z13.820 Encounter for screening for osteoporosis; Z78.0 Asymptomatic menopausal state; Z87.891 Personal history of nicotine dependence
CPT/HCPCS: 77063; 77067; 77080

== ENCOUNTER → 2023-10-13 15:00 | Outpatient (BNV) | payer MEDICARE, SELFPAY | PROVIDERS: PCP Internal Medicine; Visit Provider Radiology Diagnostic Radiology | DX: Z12.31 Encounter for screening mammogram for malignant neoplasm of breast (principal) | CPT/HCPCS: 77063; 77067 ==

== ENCOUNTER 2023-11-11 08:34 | Outpatient (REF) | payer MEDICARE, SELFPAY ==
--- NOTE | ~2023-11-11 | MM_ITS ---
EXAMINATION: MM DIAGNOSTIC DIGITAL BREAST TOMOSYNTHESIS, LEFT CLINICAL INFORMATION: Follow-up focal asymmetry left breast 3:00 position just lateral to posterior nipple line at middle depth. COMPARISON: Mammography: 11/02/2023, and exams dating back to 12/26/2016. TECHNIQUE: Digital breast tomosynthesis is performed. 2D images are generated from the tomosynthesis. The following views are obtained: Full-field 3-D digital left mediolateral view, and 3-D spot compression left MLO view x2, and left CC view. Computer-aided diagnosis was used for this study. FINDINGS: There are scattered areas of fibroglandular density (ACR BI-RADS breast composition Category b). Additional views show the focal asymmetry just lateral to the nipple line on the CC projection mid to posterior depth, and in the slightly inferior left breast on the ML projection persists slightly on spot compression and diagnostic views. When compared with exams dating back to 2017, this finding has been evaluated, followed over 2 years, and is unchanged and benign. There are no additional suspicious findings left breast. There are benign cutaneous calcifications. There is no skin or axillary abnormality. MM/MM tomosynthesis added views L IMPRESSION: No findings suspicious for malignancy LEFT breast. Focal asymmetry in the slightly outer slightly inferior central left breast is stable over numerous years dating back to 2017 and benign. No further follow-up recommended. Recommend the patient return to routine screening mammography. ASSESSMENT: BI-RADS BI-RADS 2 - Benign Findings RECOMMENDATION: 1 year F/U Results were provided to the patient at time of visit by the technologist. This patient's information was entered into a reminder system with a target due date for their next mammogram.
== END 2023-11-11 08:35 | disposition home or self-care (01) ==
LOC: HO.MAMMO 08:34
PROVIDERS: PCP Internal Medicine; Visit Provider Internal Medicine
DX: N64.89 Other specified disorders of breast (principal)
CPT/HCPCS: 77061; 77065

== ENCOUNTER → 2023-11-11 10:30 | Outpatient (BNV) | payer MEDICARE, SELFPAY | PROVIDERS: PCP Internal Medicine; Visit Provider Radiology Diagnostic Radiology | DX: R92.1 Mammographic calcification found on diagnostic imaging of breast (principal); R92.322 Mammographic fibroglandular density, left breast | CPT/HCPCS: 77065; G0279 ==

== ENCOUNTER 2024-03-07 09:53 | Outpatient (AMB) | payer MEDICARE, SELFPAY ==
[2024-03-07 10:01] VITALS: BP 120/74; PULSE 65; O2SAT 95; BMI 28.9
--- NOTE | 2024-03-07 10:01 | MHC.PC.OV ---
Vital Signs 03/07/24 10:01 Height 5 ft 1 in Weight 153 lb BMI 28.9 BP 120/74 Blood Pressure Location Rt brachial Position Sitting Pulse 65 Pulse Source Pulse Oximeter Pulse Oximetry (%) 95 Oxygen Delivery Method Room Air Intake Visit Reasons: 6 month Follow up Intake Note: Pt is here today for 6 months follow up visit. Allergies celecoxib [Celebrex] Allergy (Unknown, Verified 03/07/24 10:11) facial swelling amlodipine Adverse Reaction (Intermediate, Verified 03/07/24 10:11) edema Medication List - Last Reconciled 03/07/24 by Viji Bustos MD alendronate (Fosamax) 70 mg PO QWEEK aspirin 81 mg PO DAILY cholecalciferol (vitamin D3) 25 mcg PO DAILY metoprolol succinate ER 50 mg PO DAILY simvastatin 40 mg PO DAILY triamterene-hydrochlorothiazid 37.5-25 mg 1 tab PO DAILY Tobacco use date assessed: 03/07/24 Fall risk assessment: No Falls in past year Last assessed Fall Risk: 03/07/24 Dental Screening Dental Screen Date: 03/07/24 Did you have a dental visit in the last 12 months?: No Did you have a dental problem in the last 6 months where you did not have access to dental care?: No Was dental information given to patient?: Patient declined HPI 6 month Follow up HPI Details Patient presents for the follow-up on hypertension hyperlipidemia osteoporosis controlled on current medications. She continues to smoke a pack a day but denies chest pain shortness for breath wheezing or coughing [facility] Medical History Personal history of nicotine dependence Hypercalcemia Skin lesion Edema Nephrolithiasis Hematuria Osteoporosis (~2004) HTN (hypertension) GERD (gastroesophageal reflux disease) Hypercholesteremia Surgical History History of cataract surgery History of partial hysterectomy Family History Father No problems noted. Mother No problems noted. Maternal Grandfather No problems noted. Maternal Grandmother No problems noted. Paternal Grandfather No problems noted. Paternal Grandmother No problems noted. Social History Housing: House Alcohol intake: never Patient Tobacco Use Status: Current everyday Tobacco user Cigarettes Per Day: 20 e-Cigarette/Vaping Use: Never Used service: No Current occupational status: retired Cognitive needs: No Hearing needs: No Vision needs: Yes Questionnaire Thrive Questionnaire Date Thrive assessed: 09/10/23 AUDIT C Alcohol Use Questionnaire (AUDIT-C) 1. How often do you have a drink containing alcohol?: 4 or more times a week 2. How many drinks containing alcohol do you have on a typical day when you are drinking?: 1 or 2 3. How often do you have six or more drinks on one occasion?: Never Total Score: 4 CLEO-7 AMB Questionnaire CLEO-7 Date CLEO - 7 assessed: 09/10/23 Source: Developed by Drs. Jovanny Barbosa, Marlee Peraza, Erwin Rivas and colleagues, with an educational blanca from [employer]. Review of Systems Const All systems reviewed & are unremarkable except as noted in HPI and below Eyes Reports no additional complaints Card Reports no additional complaints Resp Reports no additional complaints GI Reports no additional complaints Reports no additional complaints Physical exam (Primary Care) Vital Signs: Last Vital Signs Pulse 65 03/07/24 10:01 BP 120/74 03/07/24 10:01 Pulse Ox 95 03/07/24 10:01 Oxygen Delivery Method Room Air 03/07/24 10:01 BMI result Body Mass Index 28.9 Tobacco/Smoking Status: Tobacco use Status Tobacco use date assessed 03/07/24 03/07/24 10:04 Patient Tobacco Use Status Current everyday Tobacco 03/07/24 10:02 e-Cigarette/Vaping Use Never Used 03/07/24 10:02 Thrive Assessment: Date of Thrive Assessment Date Thrive assessed 09/10/23 03/07/24 10:02 Const General: no acute distress HENMT Face and sinus: Yes normal facial exam Eyes General: appearance normal, both eyes and all related structures Resp Effort & Inspection: normal respiratory effort Auscultation: diminished lung sounds Cardio Rhythm: regular rhythm Heart sounds: S1 normal heart sound present and S2 normal heart sound present GI Inspection: Yes normal to inspection Assessment and Plan Assessment & Plan (1) HTN (hypertension): Comment: BP<130/80 Code(s): I10 - Essential (primary) hypertension Plan: Continue current medications (2) Hypercholesteremia: Code(s): E78.00 - Pure hypercholesterolemia, unspecified Plan: Continue statin (3) Osteoporosis: Onset Date: ~2004 Comment: (Bone Dexa Lumbar T-score -2.5 in 2004 & -3.1 in 2017 - started Fosamax 01/2018, stopped 12/2020 -stomach upset), restarted 10/30 Code(s): M81.0 - Age-related osteoporosis without current pathological fracture Plan: Continue Fosamax vitamin-D (4) Annual physical exam: Code(s): Z00.00 - Encounter for general adult medical examination without abnormal findings Orders: Orders Comprehensive [place]. Panel Fast 6 Months E78.00 - Pure hypercholesterolemia, unspecified, I10 - Essential (primary) hypertension, M81.0 - Age-related osteoporosis without current pathological fracture, R31.9 - Hematuria, unspecified Complete Blood Count Auto Diff 6 Months E78.00 - Pure hypercholesterolemia, unspecified, I10 - Essential (primary) hypertension, M81.0 - Age-related osteoporosis without current pathological fracture, R31.9 - Hematuria, unspecified Lipid Panel 6 Months E78.00 - Pure hypercholesterolemia, unspecified, I10 - Essential (primary) hypertension, M81.0 - Age-related osteoporosis without current pathological fracture, R31.9 - Hematuria, unspecified Comprehensive Met. Panel Today E78.00 - Pure hypercholesterolemia, unspecified, I10 - Essential (primary) hypertension UA w Microscopic 6 Months Z00.00 - Encounter for general adult medical examination without abnormal findings Coding Level of Care Code Est Pt Level 4 (30102) Diagnoses HTN (hypertension) I10 Hypercholesteremia E78.00 Osteoporosis M81.0 Annual physical exam Z00.00
== END 2024-03-07 10:51 | disposition home or self-care (01) ==
PROVIDERS: PCP Internal Medicine; Visit Provider Internal Medicine
DX: I10 Essential (primary) hypertension (principal); E78.00 Pure hypercholesterolemia, unspecified; M81.0 Age-related osteoporosis without current pathological fracture; Z00.00 Encounter for general adult medical examination without abnormal findings
CPT/HCPCS: 99214

== ENCOUNTER 2024-03-07 10:52 | Outpatient (REF) | payer MEDICARE, SELFPAY ==
[2024-03-07 13:47] LABS: Alanine Aminotransferase 17 U/L (0-31); Albumin Level 4.1 g/dL (3.5-5.0); Alkaline Phosphatase 89 U/L (39-117); Anion Gap 13 (12-20); Aspartate Amino Transferase 20 U/L (5-31); Bilirubin Total 0.6 mg/dL (0.0-1.0); Blood Urea Nitrogen 14 mg/dL (9-16); Calcium 10.1 mg/dL (8.4-10.2); Carbon Dioxide 27 mmol/L (22-29); Chloride 107 mmol/L (96-108); Estimated Glomerular Filt Rate > 60; Glucose Random 91 mg/dL (60-115); Potassium 4.3 mmol/L (3.3-5.1); Sodium 143 mmol/L (135-145); Total Protein 7.3 g/dL (6.5-8.0)
== END 2024-03-07 10:53 | disposition home or self-care (01) ==
LOC: HO.HMGCLDS 10:52
PROVIDERS: PCP Internal Medicine; Visit Provider Internal Medicine
DX: I10 Essential (primary) hypertension (principal); E78.00 Pure hypercholesterolemia, unspecified
CPT/HCPCS: 36415; 80053

== ENCOUNTER 2024-07-06 12:07 | Outpatient (AMB) | payer MEDICARE, SELFPAY ==
[2024-07-06 12:17] VITALS: BP 136/80; PULSE 96; O2SAT 97
--- NOTE | 2024-07-06 12:17 | A.OFFPC_ITS ---
Vital Signs 07/06/24 12:17 Height 5 ft 1 in BMI Reason not done Patient refused/unable BP 136/80 Blood Pressure Location Lt brachial Position Sitting Pulse 96 Pulse Source Pulse Oximeter Pulse Oximetry (%) 97 Oxygen Delivery Method Room Air Intake Visit Reasons: Lower Abdomen Pain Intake Note: Pt is here today in office for lower abd pain for a week now. Allergies celecoxib [Celebrex] Allergy (Unknown, Verified 07/06/24 12:18) facial swelling amlodipine Adverse Reaction (Intermediate, Verified 07/06/24 12:18) edema Medication List - Last Reconciled 07/06/24 by Viji Bustos MD alendronate (Fosamax) 70 mg PO QWEEK aspirin 81 mg PO DAILY cholecalciferol (vitamin D3) 25 mcg PO DAILY metoprolol succinate ER 50 mg PO DAILY simvastatin 40 mg PO DAILY triamterene-hydrochlorothiazid 37.5-25 mg 1 tab PO DAILY Tobacco use date assessed: 07/06/24 Fall risk assessment: No Falls in past year Last assessed Fall Risk: 07/06/24 Dental Screening Dental Screen Date: 07/06/24 Did you have a dental visit in the last 12 months?: Yes Did you have a dental problem in the last 6 months where you did not have access to dental care?: No Was dental information given to patient?: Patient has dentist HPI Lower Abdomen Pain HPI Details Pt c/o LLQ abd pain for 1 week, getting slightly worse with position change. She denies nausea vomiting fever chills dysuria change in bowel habits hematuria or hematochezia. FORMERLY [facility], [facility] Medical History Personal history of nicotine dependence Hypercalcemia Skin lesion Edema Nephrolithiasis Hematuria Osteoporosis (~2004) HTN (hypertension) GERD (gastroesophageal reflux disease) Hypercholesteremia Surgical History History of cataract surgery History of partial hysterectomy Family History Father No problems noted. Mother No problems noted. Maternal Grandfather No problems noted. Maternal Grandmother No problems noted. Paternal Grandfather No problems noted. Paternal Grandmother No problems noted. Social History Housing: House Alcohol intake: never Patient Tobacco Use Status: Current everyday Tobacco user Cigarettes Per Day: 20 e-Cigarette/Vaping Use: Never Used service: No Current occupational status: retired Cognitive needs: No Hearing needs: No Vision needs: Yes Questionnaire Thrive Questionnaire Date Thrive assessed: 09/10/23 AUDIT C Alcohol Use Questionnaire (AUDIT-C) 1. How often do you have a drink containing alcohol?: 4 or more times a week 2. How many drinks containing alcohol do you have on a typical day when you are drinking?: 1 or 2 3. How often do you have six or more drinks on one occasion?: Never Total Score: 4 Score Reviewed/Action Taken: Yes CLEO-7 AMB Questionnaire CLEO-7 Date CLEO - 7 assessed: 09/10/23 Source: Developed by Drs. Jovanny Barbosa, Marlee Peraza, Erwin Rivas and colleagues, with an educational blanca from [employer]. Review of Systems Const All systems reviewed & are unremarkable except as noted in HPI and below Eyes Reports no additional complaints Resp Reports no additional complaints GI Reports no additional complaints Reports no additional complaints Physical exam (Primary Care) Vital Signs: Last Vital Signs Pulse 96 07/06/24 12:17 BP 136/80 07/06/24 12:17 Pulse Ox 97 07/06/24 12:17 Oxygen Delivery Method Room Air 07/06/24 12:17 Tobacco/Smoking Status: Tobacco use Status Tobacco use date assessed 07/06/24 07/06/24 12:20 Patient Tobacco Use Status Current everyday Tobacco 07/06/24 12:20 e-Cigarette/Vaping Use Never Used 07/06/24 12:20 Thrive Assessment: Date of Thrive Assessment Date Thrive assessed 09/10/23 07/06/24 12:20 Const General: no acute distress HENMT Face and sinus: Yes normal facial exam Neck Neck: Yes supple Resp Effort & Inspection: normal respiratory effort Auscultation: diminished lung sounds Cardio Rhythm: regular rhythm Heart sounds: S1 normal heart sound present and S2 normal heart sound present GI Inspection: Yes obesity Palpation (GI): Soft to palpation, Tenderness to palpation present (GI) in the LLQ and in the LUQ and No Rebound tenderness present Auscultation: normal bowel sounds Results AMB Urinalysis, Automated UA Leukoctes 70 Chantal/uL Last Edit by TEE Whitmore on 07/06/24 13:03 UA Nitrite Negative Last Edit by Justine Justin Scott on 07/06/24 13:03 UA Urobilinogen 0.2 mg/dL Last Edit by Justine Justin Scott on 07/06/24 13: 03 UA Protein 100 mg/dL Last Edit by Justine Justin Scott on 07/06/24 13:03 UA pH 6.0 Last Edit by Justine Justin [facility] on 07/06/24 13:03 UA Blood 200 Ketan/uL Last Edit by Justine Justin Scott on 07/06/24 13:03 UA Specific Maybell 1.025 Last Edit by Justine Justin Scott on 07/06/24 13 :03 UA Ketone Negative Last Edit by Justine Justin Scott on 07/06/24 13:03 UA Bilirubin 0 mg/dL Last Edit by Justine Justin Scott on 07/06/24 13:03 UA Glucose 0 mg/dL Last Edit by Justine Justin Scott on 07/06/24 13:03 Coding Level of Care Code Est Pt Level 4 (47385) Diagnoses Abdominal pain R10.9 Diverticulitis K57.92 HTN (hypertension) I10 Assessment & Plan Assessment & Plan (1) Abdominal pain: Comment: LLQ Code(s): R10.9 - Unspecified abdominal pain Category: Medical Plan: URINE DIPSTICK IS POSITIVE FOR BLOOD AND LEUKOCYTES. CHECK COMPREHENSIVE PANEL AND CBC STAT CT OF THE ABDOMEN PELVIS RULE OUT ACUTE DIVERTICULITIS. Levaquin 500 mg daily for 10 days (2) Diverticulitis: Code(s): K57.92 - Diverticulitis of intestine, part unspecified, without perforation or abscess without bleeding Category: Medical Plan: Check CT of the abdomen pelvis (3) HTN (hypertension): Comment: BP<130/80 Code(s): I10 - Essential (primary) hypertension Category: Medical Plan: Continue current medications Orders: Orders Complete Blood Count Auto Diff Today R10.9 - Unspecified abdominal pain Comprehensive Met. Panel Today R10.9 - Unspecified abdominal pain CT abdomen pelvis w IV con Today K57.92 - Diverticulitis of intestine, part unspecified, without perforation or abscess without bleeding, R10.9 - Unspecified abdominal pain AMB Urinalysis Automated Today Z13.9 - Encounter for screening, unspecified Urine Culture Today N20.0 - Calculus of kidney, R10.9 - Unspecified abdominal pain, R31.9 - Hematuria, unspecified Medications: New 2 levofloxacin 500 mg PO DAILY 10 tabs 0RF
== END 2024-07-06 13:43 | disposition home or self-care (01) ==
LOC: HO.HMCC 12:07
PROVIDERS: PCP Internal Medicine; Visit Provider Internal Medicine
DX: R10.9 Unspecified abdominal pain (principal); K57.92 Diverticulitis of intestine, part unspecified, without perforation or abscess without bleeding; I10 Essential (primary) hypertension; Z13.9 Encounter for screening, unspecified

== ENCOUNTER 2024-07-06 12:07 | Outpatient (REF) | payer MEDICARE, SELFPAY | END 2024-07-06 12:08 | disposition home or self-care (01) | LOC: HO.LAB 12:07 | PROVIDERS: PCP Internal Medicine; Visit Provider Internal Medicine | DX: R10.9 Unspecified abdominal pain (principal); N20.0 Calculus of kidney; R31.9 Hematuria, unspecified; K57.92 Diverticulitis of intestine, part unspecified, without perforation or abscess without bleeding; Z13.9 Encounter for screening, unspecified | CPT/HCPCS: 81003; 87086; 99212 ==

== ENCOUNTER 2024-07-06 13:15 | Outpatient (REF) | payer MEDICARE, SELFPAY ==
[2024-07-06 16:35] LABS: MANUAL DIFF FLAG NO
[2024-07-06 16:50] LABS: Basophils Percent Auto 0.6 % (0-2); Eosinophils Absolute Auto 0.1 X10*3/uL (0.0-0.4); Eosinophils Percent Auto 1.7 % (0-4); Hematocrit 41.7 % (37.0-47.0); Hemoglobin 14.5 g/dl (12.0-16.0); Imm Gran Abs Auto 0.02 X10*3/uL (0.00-0.03); Imm Gran Pct Auto 0.4 % (0.0-0.4); Lymphocytes Absolute Auto 0.9 X10*3/uL (1.2-4.9); Lymphocytes Percent Auto 16.1 % (20-40); Mean Corpuscular HGB Conc 34.8 g/dl (31.0-35.0); Mean Corpuscular Volume 97.7 fL (80.0-98.0); Mean Platelet Volume 10.5 fL (9.4-12.3); Monocytes Absolute Auto 0.6 X10*3/uL (0.1-1.2); Monocytes Percent Auto 10.9 % (2-11); Neutrophils Absolute Auto 3.8 x10*3/uL (2.0-8.3); Neutrophils Percent Auto 70.3 % (45-73); Platelet Count 247 X10*3/uL (160-400); Red Blood Count 4.27 X10*6/uL (4.20-5.50); Red Cell Distribution Width 13.6 % (11.0-16.0); White Blood Count 5.4 X10*3/uL (4.8-10.8)
[2024-07-06 17:06] LABS: Alanine Aminotransferase 20 U/L (0-31); Albumin Level 4.1 g/dL (3.5-5.0); Alkaline Phosphatase 92 U/L (39-117); Anion Gap 17 (12-20); Aspartate Amino Transferase 26 U/L (5-31); Bilirubin Total 0.6 mg/dL (0.0-1.0); Blood Urea Nitrogen 14 mg/dL (9-16); Calcium 9.5 mg/dL (8.4-10.2); Carbon Dioxide 19 mmol/L (22-29); Chloride 109 mmol/L (96-108); Estimated Glomerular Filt Rate > 60; Glucose Random 82 mg/dL (60-115); Potassium 3.8 mmol/L (3.3-5.1); Sodium 141 mmol/L (135-145); Total Protein 7.4 g/dL (6.5-8.0)
== END 2024-07-06 13:16 | disposition home or self-care (01) ==
LOC: HO.HMGCLDS 13:15
PROVIDERS: PCP Internal Medicine; Visit Provider Internal Medicine
DX: R10.9 Unspecified abdominal pain (principal)
CPT/HCPCS: 36415; 80053; 85025

== ENCOUNTER 2024-07-07 06:45 | Outpatient (REF) | payer MEDICARE, SELFPAY ==
--- NOTE | ~2024-07-07 | CT_ITS ---
EXAMINATION: CT ABDOMEN AND PELVIS WITH CONTRAST CLINICAL INFORMATION: Diverticulitis COMPARISON: None available. TECHNIQUE: Multidetector volumetric images were obtained from the superior aspect of the liver through the pubic symphysis following administration 85 mL of Omnipaque 350 intravenous contrast. Sagittal and coronal reformatted images were obtained on the technologist's workstation. Oral contrast: No This CT examination was performed using dose optimization techniques as appropriate, variously including the following: *Automated exposure control *Adjustment of mA and/or kV according to patient size (this includes techniques or standardized protocols for targeted exams where dose is matched to indication/reason for exam; i.e. extremities or head) *Use of iterative reconstruction technique DLP: 390 mGy-cm FINDINGS: LUNG BASES: The visualized lung bases are unremarkable. LIVER, GALLBLADDER, AND BILIARY TREE: The liver is normal in size, shape, and attenuation. No focal hepatic lesion or biliary ductal dilatation is present. The gallbladder is unremarkable with no evidence of radiopaque gallstones, gallbladder wall thickening, or obvious pericholecystic inflammatory changes. PANCREAS: Unremarkable. SPLEEN: Unremarkable. ADRENAL GLANDS: Unremarkable. KIDNEYS AND URETERS: The kidneys are normal in size shape and attenuation. There are multiple bilateral nonobstructing calculi measuring up to 0.6 cm on the right and 1.2 cm on the left. The left renal calculus is in the renal pelvis. There is no hydronephrosis, however there is thickening and mild enhancement of the urothelium. BLADDER: Unremarkable. GASTROINTESTINAL TRACT: There is a 4 cm duodenal diverticulum near the pancreatic head. The small and large bowel are unremarkable. Extensive diverticulosis throughout the colon. ABDOMINAL WALL: No significant hernia is appreciated. LYMPH NODES: Normal. VASCULAR: Abdominal aorta is normal in caliber. There is mild atherosclerotic disease. PELVIC VISCERA: Unremarkable. OSSEOUS STRUCTURES: Unremarkable. CT/CT abdomen pelvis w IV con IMPRESSION: 1. Extensive diverticulosis without evidence of diverticulitis. 2. 1.2 cm Left renal pelvis calculus with thickening and enhancement of the urothelium-recommend correlation for urinary tract infection. Fleischner guidelines were followed. Electronically signed by: Ceci Ramos MD 07/07/2024 10:11 AM EDT
[2024-07-07] MEDS: iohexoL 350 MG/ML 100 ML INFUS..BTL 85 ML IV (09:47)
[2024-07-07] MEDS: Barium Sulfate Oral (Berry) 450 ML ORAL.SUSP 900 ML PO (09:48)
== END 2024-07-07 06:46 | disposition home or self-care (01) ==
LOC: HO.CT 06:45
PROVIDERS: PCP Internal Medicine; Visit Provider Internal Medicine
DX: K57.92 Diverticulitis of intestine, part unspecified, without perforation or abscess without bleeding (principal); R10.9 Unspecified abdominal pain
CPT/HCPCS: 74177; Q9967

== ENCOUNTER 2024-10-02 08:32 | Outpatient (AMB) | payer MEDICARE, SELFPAY ==
[2024-10-02 08:35] VITALS: BP 128/80; PULSE 65; TEMP 36.7; O2SAT 94; BMI 29.5
--- NOTE | 2024-10-02 08:35 | MHC.PC.OV ---
Vital Signs 10/02/24 08:35 Height 5 ft 1 in Weight 156 lb BMI 29.5 BP 128/80 Blood Pressure Location Lt brachial Position Sitting Pulse 65 Pulse Source Pulse Oximeter Temp 98.1 F Temp Source Oral Pulse Oximetry (%) 94 Oxygen Delivery Method Room Air Intake Visit Reasons: Annual PE Intake Note: Pt is here today for PE. Allergies celecoxib [Celebrex] Allergy (Unknown, Verified 10/02/24 08:37) facial swelling amlodipine Adverse Reaction (Intermediate, Verified 10/02/24 08:37) edema Medication List - Last Reconciled 10/02/24 by Viji Bustos MD alendronate (Fosamax) 70 mg PO QWEEK aspirin 81 mg PO DAILY cholecalciferol (vitamin D3) 25 mcg PO DAILY metoprolol succinate ER 50 mg PO DAILY sertraline (Zoloft) 25 mg PO DAILY simvastatin 40 mg PO DAILY triamterene-hydrochlorothiazid 37.5-25 mg 1 tab PO DAILY Tobacco use date assessed: 10/02/24 Fall risk assessment: No Falls in past year Last assessed Fall Risk: 10/02/24 Dental Screening Dental Screen Date: 10/02/24 Did you have a dental visit in the last 12 months?: No Did you have a dental problem in the last 6 months where you did not have access to dental care?: No Was dental information given to patient?: Patient declined HPI Annual PE HPI Details Pt presents for PE. FORMERLY [facility], [facility] Medical History (Updated 10/02/24 @ 09:12 by Viji Bustos MD) Personal history of nicotine dependence Hypercalcemia Skin lesion Edema Nephrolithiasis Osteoporosis (~2004) HTN (hypertension) GERD (gastroesophageal reflux disease) Hypercholesteremia Surgical History History of cataract surgery History of partial hysterectomy Family History Father No problems noted. Mother No problems noted. Maternal Grandfather No problems noted. Maternal Grandmother No problems noted. Paternal Grandfather No problems noted. Paternal Grandmother No problems noted. Social History Housing: House Alcohol intake: never Patient Tobacco Use Status: Current everyday Tobacco user Tobacco use type: Cigarette Cigarettes Per Day: 10 e-Cigarette/Vaping Use: Never Used service: No Current occupational status: retired Cognitive needs: No Hearing needs: No Vision needs: Yes Questionnaire PHQ-9 Over the last 2 weeks, how often have you been bothered by any of the following problems? 1. Little interest or pleasure in doing things: not at all 2. Feeling down, depressed, or hopeless: not at all 3. Trouble falling or staying asleep, or sleeping too much: not at all 4. Feeling tired or having little energy: several days 5. Poor appetite or overeating: not at all 6. Feeling bad about yourself - or that you are a failure or have let yourself or your family down: not at all 7. Trouble concentrating on things, such as reading the newspaper or watching television: not at all 8. Moving or speaking so slowly that other people could have noticed. Or the opposite - being so fidgety or restless that you have been moving around a lot more than usual: not at all 9. Thoughts that you would be better off or of hurting yourself in some way: not at all Total score: 1 Depression Screening Interpretation: Negative Depression Screening Done: Yes 06266 - PHQ-9 Billing: Yes Source: Developed by Drs. Jovanny Barbosa, Marlee Peraza, Erwin Rivas and colleagues, with an educational blanca from [employer]. Thrive Questionnaire Date Thrive assessed: 10/02/24 I am a: Patient What is your living situation today?: I have a steady place to live Within the past 12 months, did the food you bought not last and you didn't have the money to get more?: Never true Within the past 12 months, did you worry whether your food would run out before you got money to buy more?: Never true Do you have trouble paying for medicines?: No Do you have trouble getting transportation to medical appointments?: No Do you have trouble paying your heating and electricity bill?: No Do you have trouble taking care of your child, family member or friend?: No Do you have trouble with day-to-day activities such as bathing, preparing meals, shopping, managing finances, etc.?: No Are you currently unemployed and looking for a job?: No Are you interested in more education?: No Please select the resources that you would like help with: None THRIVE Score: 0 AUDIT C Alcohol Use Questionnaire (AUDIT-C) 1. How often do you have a drink containing alcohol?: 4 or more times a week 2. How many drinks containing alcohol do you have on a typical day when you are drinking?: 1 or 2 3. How often do you have six or more drinks on one occasion?: Never Total Score: 4 CLEO-7 AMB Questionnaire CLEO-7 Date CLEO - 7 assessed: 10/02/24 Feeling nervous, anxious, or on edge: 0 = Not at all Not being able to stop or control worryin = Not at all Worrying too much about different things: 0 = Not at all Trouble relaxin = Not at all Being so restless that it is hard to sit still: 0 = Not at all Becoming easily annoyed or irritable: 0 = Not at all Feeling afraid as if something awful might happen: 0 = Not at all Total CLEO-7 score (0-4 normal; 5-9 mild; 10-14 moderate; 15-21 severe): 0 Source: Developed by Drs. Jovanny Barbosa, Marlee Peraza, Erwin Rivas and colleagues, with an educational blanca from [employer]. CLEO-7 Assessment Billing CLEO-7 Assessment Tool: CLEO-7 Assessment 14997 Review of Systems Const All systems reviewed & are unremarkable except as noted in HPI and below Eyes Reports no additional complaints ENT Reports no additional complaints Card Reports no additional complaints Resp Reports no additional complaints GI Reports no additional complaints Reports no additional complaints Physical exam (Primary Care) Vital Signs: Last Vital Signs Temp 98.1 F 10/02/24 08:35 Pulse 65 10/02/24 08:35 BP 128/80 10/02/24 08:35 Pulse Ox 94 10/02/24 08:35 Oxygen Delivery Method Room Air 10/02/24 08:35 BMI result Body Mass Index 29.5 Tobacco/Smoking Status: Tobacco use Status Tobacco use date assessed 10/02/24 10/02/24 08:41 Patient Tobacco Use Status Current everyday Tobacco 10/02/24 08:41 Tobacco use type Cigarette 10/02/24 08:41 e-Cigarette/Vaping Use Never Used 10/02/24 08:41 PHQ-9: PHQ-9 Score PHQ-9: Total score 1 10/02/24 08:43 Depression Screening Interpretation: Negative Thrive Assessment: Date of Thrive Assessment Date Thrive assessed 10/02/24 10/02/24 08:43 Const General: no acute distress HENMT Head: Yes normal to inspection Face and sinus: Yes normal facial exam Mouth: Normal oral and palatal mucosa present Eyes General: appearance normal, both eyes and all related structures Neck Neck: Yes no lymphadenopathy and Yes supple Resp Effort & Inspection: normal respiratory effort Auscultation: clear to auscultation bilaterally Cardio Rhythm: regular rhythm Heart sounds: S1 normal heart sound present and S2 normal heart sound present GI Inspection: Yes normal to inspection Palpation (GI): Soft to palpation Percussion: Yes normal to percussion Auscultation: normal bowel sounds Coding Level of Care Code Est Pt Prev Care >65y(42177) Diagnoses Nephrolithiasis N20.0 Osteoporosis M81.0 Hypercholesteremia E78.00 HTN (hypertension) I10 Annual physical exam Z00.00 Additional Codes CLEO-7 Assessment Billing - CLEO-7 Assessment Tool: CLEO-7 Assessment 30705 ([id number]) PHQ-9 - 97108 - PHQ-9 Billing: Yes ([id number]) Assessment & Plan Assessment & Plan (1) Nephrolithiasis: Comment: Gross hematuria, urological negative workup November 2020, ABD/pelvic CT 07/2024 multiple bilateral nonobstructing calculi up to 0.6 cm on the right, 1.2 cm left renal pelvic calculi no hydronephrosis Code(s): N20.0 - Calculus of kidney Category: Medical Plan: Obtain renal ultrasound to follow-up, increase fluid intake follow-up with Urology (2) Osteoporosis: Onset Date: ~2004 Comment: Dexa T-score -3.1 in 2017 started Fosamax 01/2018, stopped 12/2020 -stomach upset), restarted 10/30 Code(s): M81.0 - Age-related osteoporosis without current pathological fracture Category: Medical Plan: Continue Fosamax due for repeat DEXA next year (3) Hypercholesteremia: Code(s): E78.00 - Pure hypercholesterolemia, unspecified Category: Medical Plan: Continue statin return for fasting lipid profile (4) HTN (hypertension): Comment: BP<130/80 Code(s): I10 - Essential (primary) hypertension Category: Medical Plan: Continue current medications (5) Annual physical exam: Code(s): Z00.00 - Encounter for general adult medical examination without abnormal findings Category: Medical Plan: Well-balanced diet regular physical activity discussed with the patient tobacco quitting was recommended. Return in 6 months Orders: Orders Lipid Panel Today E78.00 - Pure hypercholesterolemia, unspecified, I10 - Essential (primary) hypertension, M81.0 - Age-related osteoporosis without current pathological fracture, N20.0 - Calculus of kidney TSH reflex Free T4 Today E78.00 - Pure hypercholesterolemia, unspecified, I10 - Essential (primary) hypertension, M81.0 - Age-related osteoporosis without current pathological fracture, N20.0 - Calculus of kidney US renal BI Today E78.00 - Pure hypercholesterolemia, unspecified, I10 - Essential (primary) hypertension, M81.0 - Age-related osteoporosis without current pathological fracture, N20.0 - Calculus of kidney Comprehensive [place]. Panel Fast Today E78.00 - Pure hypercholesterolemia, unspecified, I10 - Essential (primary) hypertension, M81.0 - Age-related osteoporosis without current pathological fracture, N20.0 - Calculus of kidney Complete Blood Count Auto Diff Today E78.00 - Pure hypercholesterolemia, unspecified, I10 - Essential (primary) hypertension, M81.0 - Age-related osteoporosis without current pathological fracture, N20.0 - Calculus of kidney Medications: Refilled metoprolol succinate ER 50 mg PO DAILY 90 tabs 3RF simvastatin 40 mg PO DAILY 90 tabs 3RF triamterene-hydrochlorothiazid 37.5-25 mg 1 tab PO DAILY 90 tabs 3RF alendronate (Fosamax) 70 mg PO QWEEK 14 tabs 3RF
== END 2024-10-02 08:59 | disposition home or self-care (01) ==
PROVIDERS: PCP Internal Medicine; Visit Provider Internal Medicine
DX: N20.0 Calculus of kidney (principal); M81.0 Age-related osteoporosis without current pathological fracture; E78.00 Pure hypercholesterolemia, unspecified; I10 Essential (primary) hypertension; Z00.00 Encounter for general adult medical examination without abnormal findings

== ENCOUNTER → 2024-10-02 08:32 | Outpatient (BNVA) | payer MEDICARE, SELFPAY | PROVIDERS: PCP Internal Medicine; Visit Provider Internal Medicine | DX: Z00.00 Encounter for general adult medical examination without abnormal findings (principal); N20.0 Calculus of kidney; M81.0 Age-related osteoporosis without current pathological fracture; E78.00 Pure hypercholesterolemia, unspecified; I10 Essential (primary) hypertension | CPT/HCPCS: 96127; 99397 ==

== ENCOUNTER 2024-10-03 08:54 | Outpatient (REF) | payer MEDICARE, SELFPAY ==
[2024-10-03 10:06] LABS: MANUAL DIFF FLAG NO
[2024-10-03 10:18] LABS: Basophils Percent Auto 0.7 % (0-2); Eosinophils Absolute Auto 0.1 X10*3/uL (0.0-0.4); Eosinophils Percent Auto 1.8 % (0-4); Hematocrit 38.8 % (37.0-47.0); Hemoglobin 13.5 g/dl (12.0-16.0); Imm Gran Abs Auto 0.02 X10*3/uL (0.00-0.03); Imm Gran Pct Auto 0.4 % (0.0-0.4); Lymphocytes Absolute Auto 0.8 X10*3/uL (1.2-4.9); Lymphocytes Percent Auto 14.8 % (20-40); Mean Corpuscular HGB Conc 34.8 g/dl (31.0-35.0); Mean Corpuscular Hemoglobin 33.8 pg (27.0-33.0); Mean Platelet Volume 10.9 fL (9.4-12.3); Monocytes Absolute Auto 0.5 X10*3/uL (0.1-1.2); Monocytes Percent Auto 9.2 % (2-11); Neutrophils Absolute Auto 4.1 x10*3/uL (2.0-8.3); Neutrophils Percent Auto 73.1 % (45-73); Platelet Count 239 X10*3/uL (160-400); Red Cell Distribution Width 12.7 % (11.0-16.0); White Blood Count 5.6 X10*3/uL (4.8-10.8)
[2024-10-03 10:43] LABS: Alanine Aminotransferase 13 U/L (0-31); Albumin Level 3.7 g/dL (3.5-5.0); Alkaline Phosphatase 81 U/L (39-117); Anion Gap 9 (12-20); Aspartate Amino Transferase 19 U/L (5-31); Bilirubin Total 0.7 mg/dL (0.0-1.0); Blood Urea Nitrogen 16 mg/dL (9-16); Calcium 8.2 mg/dL (8.4-10.2); Carbon Dioxide 23 mmol/L (22-29); Chloride 111 mmol/L (96-108); Cholesterol 164 mg/dL (<200); Estimated Glomerular Filt Rate > 60; Glucose Fasting 101 mg/dL (60-99); HDL Cholesterol 58 mg/dL (>40); LDL Cholesterol Calculated 73 mg/dL (<100); Potassium 3.3 mmol/L (3.3-5.1); Sodium 140 mmol/L (135-145); Total Protein 6.8 g/dL (6.5-8.0); Triglycerides 165 mg/dL (<150)
[2024-10-03 11:08] LABS: TSH reflex Free T4 0.63 uIU/mL (0.32-4.0)
== END 2024-10-03 08:55 | disposition home or self-care (01) ==
LOC: HO.HMGCLDS 08:54
PROVIDERS: PCP Internal Medicine; Visit Provider Internal Medicine
DX: N20.0 Calculus of kidney (principal); E78.00 Pure hypercholesterolemia, unspecified; I10 Essential (primary) hypertension; R31.9 Hematuria, unspecified; M81.0 Age-related osteoporosis without current pathological fracture
CPT/HCPCS: 36415; 80053; 80061; 84443; 85025

== ENCOUNTER 2024-10-05 07:00 | Outpatient (REF) | payer MEDICARE, SELFPAY ==
[2024-10-05 13:49] LABS: Calcium Oxalate Crystals Urine Present
[2024-10-05 13:52] LABS: Appearance Urine Cloudy; Bacteria Urine 4+ (None Seen); Color Urine Orange; Glucose Urine UA Negative (Negative); Hyaline Casts Urine 0-2 /LPF (0-2); Leukocyte Esterase Urine Large (3+) (Negative); Nitrite Urine Negative (Negative); PH >= 9.0 (5.0-9.0); Specific Gravity - Urine <= 1.005 (1.005-1.025); UMIC TRIGGER UA YES; Urine Blood Large (3+) (Negative); Urine Ketones Negative (Negative); Urine Protein 30 (1+) mg/dL (Neg-Trace)
[2024-10-05 13:53] LABS: Transitional Epi Cells Urine Present
== END 2024-10-05 07:01 | disposition home or self-care (01) ==
LOC: HO.HMGCLNP 07:00
PROVIDERS: PCP Internal Medicine; Visit Provider Internal Medicine
DX: Z00.00 Encounter for general adult medical examination without abnormal findings (principal)
CPT/HCPCS: 81001

== ENCOUNTER 2024-10-20 12:18 | Outpatient (REF) | payer MEDICARE, SELFPAY ==
--- NOTE | ~2024-10-20 | US_ITS ---
CLINICAL HISTORY: N20.0 - Calculus of kidney US Renal Comparison: 10/10/2020 Findings: Right kidney normal size and echotexture, 11.3 cm length. Left kidney normal size and echotexture, 11.7 cm length. There are bilateral renal parenchymal calculi IMPRESSION: 1. Bilateral renal parenchymal calculi. No acute findings This document has been electronically signed by: Juan Antonio Campoverde MD on 10/21/2024 08:56:50
== END 2024-10-20 12:19 | disposition home or self-care (01) ==
LOC: HO.US 12:18
PROVIDERS: Visit Provider Internal Medicine
DX: N20.0 Calculus of kidney (principal); I10 Essential (primary) hypertension; E78.00 Pure hypercholesterolemia, unspecified; M81.0 Age-related osteoporosis without current pathological fracture
CPT/HCPCS: 76775

== ENCOUNTER → 2024-10-20 12:20 | Outpatient (BNV) | payer MEDICARE, SELFPAY | PROVIDERS: Visit Provider Specialist | DX: N20.0 Calculus of kidney (principal) | CPT/HCPCS: 76775 ==

== ENCOUNTER 2024-10-25 13:45 | Outpatient (REF) | payer MEDICARE, SELFPAY | END 2024-10-25 13:46 | disposition home or self-care (01) | LOC: HO.MAMMO 13:45 | PROVIDERS: PCP Internal Medicine; Visit Provider Internal Medicine | DX: Z12.31 Encounter for screening mammogram for malignant neoplasm of breast (principal) | CPT/HCPCS: 77063; 77067 ==

== ENCOUNTER → 2024-10-25 14:30 | Outpatient (BNV) | payer MEDICARE, SELFPAY | PROVIDERS: PCP Internal Medicine; Visit Provider Internal Medicine | DX: Z12.31 Encounter for screening mammogram for malignant neoplasm of breast (principal) | CPT/HCPCS: 77063; 77067 ==

== ENCOUNTER 2025-04-02 08:43 | Outpatient (AMB) | payer MEDICARE, SELFPAY ==
--- NOTE | 2025-04-02 09:33 | A.OFFVIS_ITS ---
Vital Signs 04/02/25 09:34 Height 5 ft 1 in Intake Visit Reasons: 6 mnts Accompanied by: Spouse Allergies celecoxib (Celebrex) Allergy (Unknown, Verified 04/02/25 09:34) facial swelling amlodipine Adverse Reaction (Intermediate, Verified 04/02/25 09:34) edema Medication List - Last Reconciled 04/02/25 by Flavia Pineda CNP alendronate (Fosamax) 70 mg PO QWEEK aspirin 81 mg PO DAILY cholecalciferol (vitamin D3) 25 mcg PO DAILY memantine 10 mg PO BID metoprolol succinate ER 50 mg PO DAILY sertraline (Zoloft) 25 mg PO DAILY simvastatin 40 mg PO DAILY thiamine HCl (vitamin B1) 100 mg PO DAILY triamterene-hydrochlorothiazid 37.5-25 mg 1 tab PO DAILY HPI Comments Details: She was doing okay. She feels her memory was about the same. Her notes that she is more forgetful, repetitive and needs more reminders. On a few occasions, she has not recognized her . She was able to feed, dress, and bathe herself. Sleep was okay. Mood was okay. She goes out with her to run errands, like going to the pharmacy and grocery shopping. She enjoyed watching game shows on TV. No falls. 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 No longer driving. No wandering. Arthritis pain in knees. Around 2019, she became slightly more withdrawn and a little forgetful. She occasionally loses train of thought and some names. She sometimes forgets conversations. On one occasion, she got slightly lost driving. She's not working. 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. Previously, she was alone most of the day and some days felt depressed as her worked at [employer] parking cars. She socializes with her neighbors. She has a daughter and a grandson Hill who lives in [place]. She drinks 2 scotches with water every night, eats well and sleeps from 10-5 and has been a 13-fqvy-dvqx smoker. No bladder control problems or gait problems. [facility] Medical History (Updated 04/02/25 @ 09:51 by Flavia Pineda CNP) MCI (mild cognitive impairment) Personal history of nicotine dependence Hypercalcemia Skin lesion Edema Nephrolithiasis Osteoporosis (~2004) HTN (hypertension) GERD (gastroesophageal reflux disease) Hypercholesteremia Surgical History History of cataract surgery History of partial hysterectomy Family History Father No problems noted. Mother No problems noted. Maternal Grandfather No problems noted. Maternal Grandmother No problems noted. Paternal Grandfather No problems noted. Paternal Grandmother No problems noted. Social History Housing: House Alcohol intake: never Patient Tobacco Use Status: Current everyday Tobacco user Tobacco use type: Cigarette Cigarettes Per Day: 10 e-Cigarette/Vaping Use: Never Used service: No Current occupational status: retired Cognitive needs: No Hearing needs: No Vision needs: Yes Review of Systems Const Denies chills, Denies daytime sleepiness, Denies difficulty sleeping, Denies fatigue, Denies fever(s), Denies frequent falls, Denies headache(s), Denies increased appetite, Denies poor appetite, Denies snoring, Denies weakness, Denies weight gain and Denies weight loss Eyes Denies loss of vision ENT Denies vertigo, Denies dizziness, Denies headache(s) and Denies neck pain Card Denies chest pain at rest, Denies chest pain with activity, Denies syncope, Reports leg edema, Denies palpitations, Denies dyspnea and Denies dyspnea on exertion Resp Denies cough, Denies dyspnea, Denies dyspnea on exertion and Denies snoring GI Denies abdominal pain, Denies constipation, Denies heartburn, Denies diarrhea and Denies nausea Denies urinary frequency, Denies urinary incontinence and Denies urinary urgency Musc Denies abnormal gait, Denies back pain, Denies myalgias, Reports arthralgias, Denies neck pain, Denies numbness and Denies tingling Neuro Denies abnormal gait, Denies vertigo, Denies dizziness, Denies syncope, Denies frequent falls, Denies headache(s), Denies lack of coordination, Denies loss of vision, Reports memory loss, Denies numbness, Denies Other visual disturbances, Denies restless legs, Denies seizure-like activity, Denies tingling, Denies paresthesias, Denies tremor(s) and Denies weakness Psych Denies anxiety, Denies depression, Denies auditory hallucinations, Reports memory loss and Denies visual hallucinations Endo Denies fatigue and Denies palpitations Physical Exam Const Other: General Appearance:? normal, in no acute distress. Heart:? S1, S2 normal, no murmurs. Lungs:? clear anteriorly and posteriorly. Musculoskeletal:? normal. Extremities:? mild swelling in LE R > L. Psych:? alert, as below. Neuro Other: Abnormal Neurological Findings:?MMSE 24/30. Mental Status: alert, as below. Cranial Nerves: Pupils are equal, round, and reactive to light. External ocular muscles are intact. Visual watson are full, no ptosis. Face is symmetrical, no facial weakness or droop. Facial sensations are normal. Tongue protrudes in midline. Palate elevates symmetrically. Shoulder shrugging is normal Motor Examination: Normal muscle tone, bulk and strength. No atrophy or fasciculations. No drift of the extended upper extremities. DTR 2+. Plantars are flexor. Sensory Exam: Normal light touch, temperature, pinprick, vibration, and joint- position sensations. Rhomberg sign is absent. Coordination: No ataxia. No titubation. Hmjypd-up-kabw, hddb-fuqq-rwnm test, and rapid alternating movements were normal. Gait Exam: Within normal limits. Cerebellar Signs: Vilmlq-em-ohtr and ipiy-rc-tckh is normal. No dysdiadochokinesia. Extrapyramidal System: No tremor, rigidity with normal facial expressions. No bradykinesia. No bradyphrenia. Normal arm swing and posture. No propulsion or retropulsion. Speech: Normal. No dysphasia or dysarthria. MMSE Level of Consciousness: Alert. Orientation: Does not know year, month, date, day or season. Knows correct city, county and state. Knows correct location and floor. Registration: Able to register 3 objects. Attention: Serial 7's performed accurately to 93. Recall: Able to recall 0 out of 3 objects. Language: Normal spontaneous speech, fluency, repetition, naming, comprehension, reading, and writing. Total Score: 24/30. Assessment & Plan Assessment & Plan (1) Alzheimer dementia: Code(s): G30.9 - Alzheimer's disease, unspecified; F02.80 - Dementia in other diseases classified elsewhere, unspecified severity, without behavioral disturbance, psychotic disturbance, mood disturbance, and anxiety Category: Medical Qualifiers: Alzheimer's disease onset: unspecified onset Dementia severity: mild Dementia behavioral or psychological symptom: without behavioral, psychotic, or mood disturbance or anxiety Qualified Code(s): G30.9 - Alzheimer's disease, unspecified; F02.A0 - Dementia in other diseases classified elsewhere, mild, without behavioral disturbance, psychotic disturbance, mood disturbance, and anxiety Plan: Continue memantine 10mg 1 tablet twice a day. Continue sertraline 25mg 1 tablet daily. Stay physically and socially active. Coding Level of Care Code Est Pt Level 4 (28418) Diagnoses Mild Alzheimer's dementia without behavioral disturbance, psychotic disturbance, mood disturbance, or anxiety, unspecified timing of dementia onset G30.9; F02.A0 Alzheimer's disease onset: unspecified onset Dementia severity: mild Dementia behavioral or psychological symptom: without behavioral, psychotic, or mood disturbance or anxiety
== END 2025-04-02 10:15 | disposition home or self-care (01) ==
LOC: HO.HSM 08:43
PROVIDERS: PCP Internal Medicine; Visit Provider Registered Nurse
DX: G30.9 Alzheimer's disease, unspecified (principal); F02.A0 Dementia in other diseases classified elsewhere, mild, without behavioral disturbance, psychotic disturbance, mood disturbance, and anxiety
CPT/HCPCS: 99214

== ENCOUNTER → 2025-04-02 08:43 | Outpatient (BNVA) | payer MEDICARE, SELFPAY | PROVIDERS: PCP Internal Medicine; Visit Provider Registered Nurse | DX: G30.9 Alzheimer's disease, unspecified (principal); F02.A0 Dementia in other diseases classified elsewhere, mild, without behavioral disturbance, psychotic disturbance, mood disturbance, and anxiety; Z79.899 Other long term (current) drug therapy | CPT/HCPCS: 99212 ==

== ENCOUNTER 2025-04-06 11:41 | Outpatient (AMB) | payer MEDICARE, SELFPAY ==
--- NOTE | 2025-04-06 11:52 | MHC.PC.OV ---
Vital Signs 04/06/25 11:55 Height 5 ft 1 in Weight 144 lb BMI 27.2 BP 126/82 Blood Pressure Location Rt brachial Position Sitting Respiration 20 Pulse 67 Pulse Source Pulse Oximeter Temp 98.1 F Temp Source Oral Pulse Oximetry (%) 96 Oxygen Delivery Method Room Air Intake Visit Reasons: 6m f/u Intake Note: Pt is here today for 6 months follow up visit. Allergies celecoxib (Celebrex) Allergy (Unknown, Verified 04/06/25 12:00) facial swelling amlodipine Adverse Reaction (Intermediate, Verified 04/06/25 12:00) edema Medication List - Last Reconciled 04/06/25 by Viji Bustos MD alendronate (Fosamax) 70 mg PO QWEEK aspirin 81 mg PO DAILY cholecalciferol (vitamin D3) 25 mcg PO DAILY memantine 10 mg PO BID metoprolol succinate ER 50 mg PO DAILY sertraline (Zoloft) 25 mg PO DAILY simvastatin 40 mg PO DAILY thiamine HCl (vitamin B1) 100 mg PO DAILY triamterene-hydrochlorothiazid 37.5-25 mg 1 tab PO DAILY Tobacco use date assessed: 04/06/25 Fall risk assessment: No Falls in past year Last assessed Fall Risk: 04/06/25 Dental Screening Dental Screen Date: 04/06/25 Did you have a dental visit in the last 12 months?: Yes Did you have a dental problem in the last 6 months where you did not have access to dental care?: No Was dental information given to patient?: Patient has dentist HPI 6m f/u HPI Details Patient presents for the follow-up of hypertension hyperlipidemia and dementia. She complains of intermittent left lower quadrant abdominal pain lasting a few hours not associated with change in bowel movements fever chills nausea vomiting hematochezia melena dysuria or hematuria. She has been to urgent care twice and does not remember having any blood work or taking medications. [facility] Medical History MCI (mild cognitive impairment) Personal history of nicotine dependence Hypercalcemia Skin lesion Edema Nephrolithiasis Osteoporosis (~2004) HTN (hypertension) GERD (gastroesophageal reflux disease) Hypercholesteremia Surgical History History of cataract surgery History of partial hysterectomy Family History Father No problems noted. Mother No problems noted. Maternal Grandfather No problems noted. Maternal Grandmother No problems noted. Paternal Grandfather No problems noted. Paternal Grandmother No problems noted. Social History Housing: House Alcohol intake: never Patient Tobacco Use Status: Current everyday Tobacco user Tobacco use type: Cigarette Cigarettes Per Day: 10 e-Cigarette/Vaping Use: Never Used service: No Current occupational status: retired Cognitive needs: No Hearing needs: No Vision needs: Yes Questionnaire PHQ-9 Over the last 2 weeks, how often have you been bothered by any of the following problems? 1. Little interest or pleasure in doing things: not at all 2. Feeling down, depressed, or hopeless: not at all 3. Trouble falling or staying asleep, or sleeping too much: not at all 4. Feeling tired or having little energy: several days 5. Poor appetite or overeating: not at all 6. Feeling bad about yourself - or that you are a failure or have let yourself or your family down: not at all 7. Trouble concentrating on things, such as reading the newspaper or watching television: not at all 8. Moving or speaking so slowly that other people could have noticed. Or the opposite - being so fidgety or restless that you have been moving around a lot more than usual: not at all 9. Thoughts that you would be better off or of hurting yourself in some way: not at all Total score: 1 Depression Screening Interpretation: Negative Depression Screening Done: Yes 99679 - PHQ-9 Billing: Yes Source: Developed by Drs. Jovanny Barbosa, Marlee Peraza, Erwin Rivas and colleagues, with an educational blanca from [employer]. Thrive Questionnaire Date Thrive assessed: 04/06/25 I am a: Patient What is your living situation today?: I have a steady place to live Within the past 12 months, did the food you bought not last and you didn't have the money to get more?: Never true Within the past 12 months, did you worry whether your food would run out before you got money to buy more?: Never true Do you have trouble paying for medicines?: No Do you have trouble getting transportation to medical appointments?: No Do you have trouble paying your heating and electricity bill?: No Do you have trouble taking care of your child, family member or friend?: No Do you have trouble with day-to-day activities such as bathing, preparing meals, shopping, managing finances, etc.?: No Are you currently unemployed and looking for a job?: No Are you interested in more education?: No Please select the resources that you would like help with: None THRIVE Score: 0 CLEO-7 AMB Questionnaire CLEO-7 Date CLEO - 7 assessed: 04/06/25 Feeling nervous, anxious, or on edge: 0 = Not at all Not being able to stop or control worryin = Not at all Worrying too much about different things: 0 = Not at all Trouble relaxin = Not at all Being so restless that it is hard to sit still: 0 = Not at all Becoming easily annoyed or irritable: 0 = Not at all Feeling afraid as if something awful might happen: 0 = Not at all Total CLEO-7 score (0-4 normal; 5-9 mild; 10-14 moderate; 15-21 severe): 0 Source: Developed by Drs. Jovanny Barbosa, Marlee Peraza, Erwin Rivas and colleagues, with an educational blanca from [employer]. CLEO-7 Assessment Billing CLEO-7 Assessment Tool: CLEO-7 Assessment 68789 Review of Systems Const All systems reviewed & are unremarkable except as noted in HPI and below Eyes Reports no additional complaints ENT Reports no additional complaints Card Reports no additional complaints Resp Reports no additional complaints GI Reports no additional complaints Reports no additional complaints Physical exam (Primary Care) Vital Signs: Last Vital Signs Temp 98.1 F 04/06/25 11:55 Pulse 67 04/06/25 11:55 Resp 20 04/06/25 11:55 BP 126/82 04/06/25 11:55 Pulse Ox 96 04/06/25 11:55 Oxygen Delivery Method Room Air 04/06/25 11:55 BMI result Body Mass Index 27.2 Tobacco/Smoking Status: Tobacco use Status Tobacco use date assessed 04/06/25 04/06/25 12:07 Patient Tobacco Use Status Current everyday Tobacco 04/06/25 11:53 Tobacco use type Cigarette 04/06/25 11:53 e-Cigarette/Vaping Use Never Used 04/06/25 11:53 PHQ-9: PHQ-9 Score PHQ-9: Total score 1 04/06/25 12:58 Depression Screening Interpretation: Negative Thrive Assessment: Date of Thrive Assessment Date Thrive assessed 04/06/25 04/06/25 12:07 Const General: no acute distress HENMT Head: Yes normal to inspection Neck Neck: Yes supple Resp Effort & Inspection: normal respiratory effort Auscultation: clear to auscultation bilaterally Cardio Rhythm: regular rhythm Heart sounds: S1 normal heart sound present and S2 normal heart sound present GI Inspection: Yes normal to inspection Palpation (GI): Soft to palpation, Tenderness to palpation present (GI) in the LLQ and suprapubicly and No Rebound tenderness present Percussion: Yes normal to percussion Auscultation: normal bowel sounds Extrem Other: 1+ pitting edema and chronic venous stasis changes on both lower extremities Coding Level of Care Code Est Pt Level 4 (77542) Diagnoses HTN (hypertension) I10 Hypercholesteremia E78.00 Osteoporosis M81.0 Venous insufficiency (chronic) (peripheral) I87.2 Abdominal pain R10.9 Additional Codes CLEO-7 Assessment Billing - CLEO-7 Assessment Tool: CLEO-7 Assessment 54716 ([id number]) PHQ-9 - 71278 - PHQ-9 Billing: Yes ([id number]) Assessment & Plan Assessment & Plan (1) HTN (hypertension): Comment: BP<130/80 Code(s): I10 - Essential (primary) hypertension Category: Medical Plan: Continue current medications (2) Hypercholesteremia: Code(s): E78.00 - Pure hypercholesterolemia, unspecified Category: Medical Plan: Continue statin (3) Osteoporosis: Onset Date: ~2004 Comment: Dexa T-score -3.1 in 2017 started Fosamax 01/2018, stopped 12/2020 -stomach upset), restarted 10/30 Code(s): M81.0 - Age-related osteoporosis without current pathological fracture Category: Medical Plan: Continue Fosamax and vitamin-D (4) Venous insufficiency (chronic) (peripheral): Code(s): I87.2 - Venous insufficiency (chronic) (peripheral) Category: Medical Plan: Patient was advised to wear compression knee-highs (5) Abdominal pain: Comment: Q Code(s): R10.9 - Unspecified abdominal pain Category: Medical Plan: For recurrent left lower quadrant abdominal pain check urinalysis urine culture CBC comprehensive panel. Levaquin 500 mg for 10 days is prescribed. Orders: Orders Complete Blood Count Auto Diff Today E78.00 - Pure hypercholesterolemia, unspecified, I10 - Essential (primary) hypertension, M81.0 - Age-related osteoporosis without current pathological fracture TSH reflex Free T4 Today E78.00 - Pure hypercholesterolemia, unspecified, I10 - Essential (primary) hypertension, M81.0 - Age-related osteoporosis without current pathological fracture Comprehensive Met. Panel Today R10.32 - Left lower quadrant pain UA w Microscopic Today E78.00 - Pure hypercholesterolemia, unspecified, I10 - Essential (primary) hypertension, M81.0 - Age-related osteoporosis without current pathological fracture C Reactive Protein Today R10.32 - Left lower quadrant pain Urine Culture Today R10.32 - Left lower quadrant pain Medications: New levofloxacin 500 mg PO DAILY 10 tabs 0RF comp.stocking,knee,long,medium 10-20 mmHg 4 ea 0RF I87.2 - Venous insufficiency (chronic) (peripheral)
[2025-04-06 11:55] VITALS: BP 126/82; PULSE 67; RESP 20; TEMP 36.7; O2SAT 96; BMI 27.2
== END 2025-04-06 12:58 | disposition home or self-care (01) ==
LOC: HO.HMCC 11:42
PROVIDERS: PCP Internal Medicine; Visit Provider Internal Medicine
DX: I10 Essential (primary) hypertension (principal); E78.00 Pure hypercholesterolemia, unspecified; M81.0 Age-related osteoporosis without current pathological fracture; I87.2 Venous insufficiency (chronic) (peripheral); R10.9 Unspecified abdominal pain

== ENCOUNTER → 2025-04-06 11:41 | Outpatient (BNVA) | payer MEDICARE, SELFPAY | PROVIDERS: PCP Internal Medicine; Visit Provider Internal Medicine | DX: I10 Essential (primary) hypertension (principal); E78.00 Pure hypercholesterolemia, unspecified; M81.0 Age-related osteoporosis without current pathological fracture; I87.2 Venous insufficiency (chronic) (peripheral); R10.32 Left lower quadrant pain; F03.90 Unspecified dementia, unspecified severity, without behavioral disturbance, psychotic disturbance, mood disturbance, and anxiety; Z79.899 Other long term (current) drug therapy; Z13.31 Encounter for screening for depression; Z13.39 Encounter for screening examination for other mental health and behavioral disorders | CPT/HCPCS: 96127; 99212 ==